=== PATIENT | female | born 1935 | race Caucasian/White ===

== ENCOUNTER 2021-02-19 15:44 | Inpatient (IN) | payer OTHER, SELFPAY ==
[2021-02-19 15:45] VITALS: BP 118/65; PULSE 80; RESP 16; TEMP 36.8; O2SAT 97; BMI 19.1
--- NOTE | 2021-02-19 16:02 | EDS_ITS ---
HPI History of Present Illness Chief Complaint: Lower Extremity Injury Informant: patient Narrative Narrative: Patient is a 85-year-old previously healthy [facility] female who presents to the emergency department for right hip pain. She was seen in urgent care earlier today. She was diagnosed with a hip fracture and sent to the emergency department. She had a fall on Thursday which caused the right hip pain. She has been getting around with a wheelchair as she cannot bear any weight. She states at rest she denies having any significant pain. Has been having some pain in her heel as well. She denies hitting her head or losing consciousness. No other injury noted. She is not any blood thinning medications. She denies any loss of sensation going down the legs. [facility] Medical History Hearing loss, left Hearing loss, right Wears hearing aid in both ears Home Medications multivitamin 1 tab PO DAILY 02/19/21 [History Last Taken Unknown] Allergy/AdvReac Type Severity Reaction Status Date / Time No Known Allergies Allergy Unverified 02/19/21 13:07 Family History Other Heart disease Surgical History History of History of hysterectomy Social History Smoking Status: Never smoker ROS ROS ED Constitutional Constitutional ED: Denies chills or fever(s) Eyes Eyes: Denies change in vision ENT ENT ED: Denies epistaxis or rhinorrhea Cardiovascular Cardiovascular: Denies chest pain or palpitations Respiratory/Chest Respiratory/Chest: Denies cough, dyspnea or dyspnea on exertion Gastrointestinal Gastrointestinal: Denies abdominal pain, diarrhea, nausea or vomiting Musculoskeletal Musculoskeletal: Reports joint pain; Denies back pain or neck pain Integumentary Denies rash Neurologic Neurologic: Denies dizziness, headache(s) or weakness EXAM Physical Exam Const Vital Signs: 02/19/21 15:45 Temperature 98.2 F Temperature Source Temporal Pulse Rate 80 Respiratory Rate 16 Blood Pressure 118/65 Blood Pressure Mean 82 Pulse Ox 97 Oxygen Delivery Method Room Air General Appearance ED: NAD HEENT Reports normocephalic, head/scalp atraumatic and moist mucous membranes Eyes PERRL and EOMs intact bilaterally Neck supple Resp normal respiratory effort and clear to auscultation bilaterally Auscultation: Negative for rales, rhonchi or wheezes Cardio regular rate, regular rhythm and no murmurs GI normal to inspection, nondistended, normoactive bowel sounds and non-tender Palpation: soft; Negative for guarding or rebound tenderness present Back/Spine no CVA tenderness Extremity normal to inspection Extremity Narrative: Difficulty moving right hip. 2+ DP pulse. Sensation intact. General Extremety ED: Negative for edema General Extremity: Negative for edema Neuro CN's II-XII intact bilaterally and no sensory deficits noted Sensorium / Orientation: alert Motor Exam: strength 5/5 throughout Psych mental status grossly normal Skin no rashes or lesions noted MDM MDM MDM Narrative Medical decision making narrative: Patient presents to the emergency department for right intertrochanteric femur fracture. She fell on Thursday. She had x-ray done as an outpatient. Patient is neurovascularly intact on exam. She is i no acute pain. I did discuss the case with the on-call orthopedic doctor as well as the hospitalist. Will bring into the hospital at this time for further evaluation and management. Discharge Plan Dx/Rx/DC Orders Clinical Impression: Hip pain Disposition Disposition: Acute Care Hospital [facility] Discharge Date/Time: 02/19/21 17:30
--- NOTE | 2021-02-19 17:04 | HP.PCM.HOS_ITS ---
HPI - General General Date of Admission: 02/19/21 HPI Narrative SONG FONG, is a 85 F who presents presents with right hip pain. Patient went to an urgent care today and was found to have a right intertrochanteric hip fracture. Patient was sent to the [facility] emergency room. Emergency room physician spoke with Dr. Cecy Ramirez who would see the patient in consultation. Patient stated that she fell while tripping over raised edged on a sidewalk landing on her right buttocks and also scraping her left thumb. Patient has been unable to bear weight since then. Patient states that she does not routinely fall and is otherwise been healthy. [facility] Medical History Hearing loss, left Hearing loss, right Wears hearing aid in both ears Home Medications multivitamin 1 tab PO DAILY 02/19/21 [History Last Taken Unknown] Allergy/AdvReac Type Severity Reaction Status Date / Time No Known Allergies Allergy Unverified 02/19/21 13:07 Family History Other Heart disease Surgical History History of History of hysterectomy Social History Smoking Status: Never smoker ROS ROS Narrative Right hip pain post fall. Right thumb abrasion post fall. Did not fall and hit her head when she fell. All review of systems were negative except as mentioned above in the history of present illness and the other review of systems. Vital Signs Vital Signs Vital Signs: 02/19/21 15:45 Temperature 36.8 C Temperature Source Temporal Pulse Rate 80 Respiratory Rate 16 Blood Pressure 118/65 Blood Pressure Mean 82 Pulse Ox 97 Oxygen Delivery Method Room Air Weight Weight: 44.452 kg Body Mass Index (BMI) 19.1 Physical Exam Const alert and no apparent distress General Appearance: cooperative HEENT normocephalic and moist oral mucous membranes Resp normal respiratory effort, no use of accessory muscles and clear to auscultation bilaterally Cardio regular rate, regular rhythm, S1 normal heart sound and S2 normal heart sound GI normal to inspection, nondistended, normoactive bowel sounds, non-tender and non-distended Extremity normal to inspection Extremity Narrative: Shortened right lower extremity compared to the left. Skin no rashes or lesions noted and skin turgor normal Neuro Neuro Narrative: DTRs 2 out of 4 in the lower extremities bilaterally. Sensorium / Orientation: awake and alert Psych affect normal Mood & Affect: depressed Results Medical Records Data Attestation: I reviewed the patient's medical records Right hip x-ray reviewed and showed right intertrochanteric hip fracture. Foot ankle x-ray reviewed showed no acute fracture. Assessment & Plan Assessment/Plan (1) Fracture, intertrochanteric, right femur: QUALIFIERS: Encounter type: initial encounter Fracture type: closed Fracture alignment: nondisplaced Qualified Code(s): S72.144A - Nondisplaced intertrochanteric fracture of right femur, initial encounter for closed fracture PLAN: 1. Right intertrochanteric hip fracture * Status post mechanical fall * NSQIP showed patient is overall low surgical risk though higher likelihood of discharged to halfway facility or rehab facility. * Patient medically cleared to proceed with surgery but will check preop EKG to verify no acute issues that would necessitate further management. * Dr. Morrow was notified through the emergency room and will see the patient in consultation. * Check a 25-hydroxy vitamin D level and replace if less than 50. 2. Suspected moderate protein malnutrition * Patient is very gaunt in appearance * No baseline weight to compare to * Check albumin 3. VTE prophylaxis * SCDs for now 4. Advanced care planning: Discussed with the patient. Patient wants CPR but does not want shocks. Told her that it none or nothing approach. She that she would receive shocks if it were deemed necessary. I did encourage her to talk it over further with her family but that we would leave her at full CODE STATUS including shocks, if indicated. I did radiate on several occasions that I have low concern for any cardiopulmonary arrest to occur while she is in the hospital during this hospitalization. Charges/Coding Visit Charges Inpatient E&M: 65202 Init Hosp L3
[2021-02-19 17:29] VITALS: BP 118/65; PULSE 80; RESP 16; TEMP 36.8; O2SAT 98
[2021-02-19 17:33] VITALS: BMI 17.1
[2021-02-19 17:34] VITALS: BP 124/69; PULSE 73; RESP 18; TEMP 36.8; O2SAT 97
--- NOTE | 2021-02-19 17:35 | EKG12_ITS ---
Test Reason : PRE OP Blood Pressure : / mmHG Vent. Rate : 083 BPM Atrial Rate : 076 BPM P-R Int : 140 ms QRS Dur : 086 ms QT Int : 414 ms P-R-T Axes : 000 029 064 degrees QTc Int : 486 ms Sinus rhythm vs Ectoppic atrial rhythm with occasional Premature ventricular complexes and Prematur e atrial complexes Non- specific T- wve abnormality Confirmed by BHUPINDER WEATHERS, KATIE ([id number]), publications editor PIPE VILLA ([id number]) on 02/22/2021 8:04:40 AM Referred By: CARMELA Confirmed By:KATIE ROE MD
[2021-02-19 18:21] LABS: Absolute Lymphocyte Count 0.89 X10^3/uL (0.83-4.51); Absolute Neutrophil Count 6.3 X10^3/uL (2.0-7.7); Basophil# 0.02 X10^3/uL; Basophil% 0.3 % (0-1); Eosinophil# 0.03 X10^3/uL; Eosinophils% 0.4 % (0-5); Hematocrit 31.9 % (37-47); Hemoglobin 10.9 g/dL (12.0-15.0); Lymphocyte # 0.89 X10^3/ul (0.83-4.51); Lymphocyte % 11.2 % (19-41); Mean Corp Hgb Conc 34.2 g/dL (32-36); Mean Corpuscular Hgb 30.1 pg (27.0-32.0); Mean Corpuscular Volume 88.1 fL (81-99); Mean Platelet Vol. 9.2 fl (6.2-12.0); Monocyte# 0.61 X10^3/uL; Monocyte% 7.7 % (0-10); NRBC Flagged by Analyzer 0 % (0-5); Neutrophil # 6.31 X10^3/uL (2.7-7.7); Neutrophil % 79.4 % (47-70); Platelet Count 215 K/mm3 (150-450); RBC Distribution Width CV 13.2 % (11.6-14.6); RBC Distribution Width SD 42.7 fl (35.1-43.9); Red Blood Count 3.62 M/mm3 (4.2-5.4); White Blood Count 7.9 K/mm3 (4.4-11.0)
[2021-02-19 18:57] LABS: ALB/GLOB Ratio 0.7 RATIO (0.9-2.4); AST(SGOT) 29 U/L (15-37); Alanine Aminotransfer ALT/SGPT 26 U/L (13-56); Albumin, Serum 3.1 g/dL (3.2-5.0); Alkaline Phosphatase 102 U/L (45-117); Anion Gap 8 (5-15); BUN 8 mg/dL (7-18); BUN/Creat Ratio 14.5 RATIO (10-20); Calcium,Total 9.5 mg/dL (8.5-10.1); Chloride 92 mmol/L (98-107); Creatinine, Serum 0.55 mg/dL (0.55-1.02); EST Glomerular Filtration Rate 112 mL/min (>60); Est Glom Filt Rate - Afr Amer 135 mL/min (>60); Estimated Creatinine Clearance 26.27 ml/min; Globulin 4.4 g/dL (2.2-4.2); Glucose 110 mg/dL (74-106); Potassium 3.6 mmol/L (3.5-5.1); Protein, Total 7.5 g/dL (6.4-8.2); Sodium Level 127 mmol/L (136-145)
[2021-02-19 18:59] LABS: Vitamin D,25 Hydroxy 11.4 ng/mL
[2021-02-19 23:34] VITALS: BP 118/67; PULSE 73; RESP 15; TEMP 36.8; O2SAT 100
[2021-02-20 05:34] VITALS: BP 134/84; PULSE 74; RESP 16; TEMP 37; O2SAT 98
--- NOTE | 2021-02-20 09:29 | NURSING ---
call placed to Dr. Mcintosh office, talked with her nurse whom confirmed he is aware of consult states will see patient this afternoon. requested she inform Dr. Morrow pt is ordered Regular diet at this time incase he intents to take patient to OR today.
--- NOTE | 2021-02-20 10:22 | NURSING ---
Surgery Charge nurse updated via text: I called the office. Dr. Morrow is aware of consult will see pt this afternoon, and was informed pt is currently ordered Regular diet. No orders given.
--- NOTE | 2021-02-20 10:53 | PCM.PN.HOSP ---
Documented by User: Aileen Jamison NP, [facility] 02/20/21 11:05 Subjective Subjective Patient seen and examined. Denies significant pain except with movement. Awaiting Ortho eval for surgery plans. Denies other symptoms or complaints. Family at bedside. Objective Data Objective Data Vital Signs: Vital Signs Temp Pulse Resp BP Pulse Ox 98.6 F 74 16 134/84 H 98 02/20/21 05:34 02/20/21 05:34 02/20/21 05:34 02/20/21 05:34 02/20/21 05:34 Oxygen Delivery Method Room Air Weight: 87 lb 9.6 oz Body Mass Index (BMI) 17.1 Intake & Output: Intake and Output for Last 24 Hours 02/18/21 02/19/21 02/20/21 23:59 23:59 23:59 Intake Total 800 / 800 Output Total 550 / 550 400 / 400 Balance 250 / 250 -400 / -400 Lab / Micro Data Result Diagrams: 02/19/21 18:02 02/19/21 18:02 Labs: Laboratory Results - last 24 hr 02/19/21 02/19/21 02/19/21 18:02 18:02 18:02 WBC 7.9 RBC 3.62 L Hgb 10.9 L Hct 31.9 L MCV 88.1 MCH 30.1 MCHC 34.2 RDW Std Deviation 42.7 RDW Coeff of [place] 13.2 Plt Count 215 MPV 9.2 Immature Gran % (Auto) 1.000 H Neut % (Auto) 79.4 H Lymph % (Auto) 11.2 L [place] % (Auto) 7.7 Eos % (Auto) 0.4 Baso % (Auto) 0.3 Absolute Neuts (auto) 6.3 Absolute Lymphs (auto) 0.89 Nucleated RBC % 0 Sodium 127 L Potassium 3.6 Chloride 92 L Carbon Dioxide 27.0 Anion Gap 8 BUN 8 Creatinine 0.55 Estim Creat Clear Calc 26.27 Est GFR (MDRD) Af Amer 135 Est GFR (MDRD) Non-Af 112 BUN/Creatinine Ratio 14.5 Glucose 110 H Calcium 9.5 Total Bilirubin 0.70 AST 29 ALT 26 Alkaline Phosphatase 102 Total Protein 7.5 Albumin 3.1 L Globulin 4.4 H Albumin/Globulin Ratio 0.7 L Vitamin D 25-Hydroxy 11.4 Blood Type Antibody Screen 02/20/21 06:48 WBC RBC Hgb Hct MCV MCH MCHC RDW Std Deviation RDW Coeff of [place] Plt Count MPV Immature Gran % (Auto) Neut % (Auto) Lymph % (Auto) [place] % (Auto) Eos % (Auto) Baso % (Auto) Absolute Neuts (auto) Absolute Lymphs (auto) Nucleated RBC % Sodium Potassium Chloride Carbon Dioxide Anion Gap BUN Creatinine Estim Creat Clear Calc Est GFR (MDRD) Af Amer Est GFR (MDRD) Non-Af BUN/Creatinine Ratio Glucose Calcium Total Bilirubin AST ALT Alkaline Phosphatase Total Protein Albumin Globulin Albumin/Globulin Ratio Vitamin D 25-Hydroxy Blood Type A POSITIVE Antibody Screen NEGATIVE Physical Exam Const alert, oriented x3 and no apparent distress Orientation / Consciousness: awake, oriented to person, oriented to place and oriented to time Nutritional Appearance: cachectic HEENT normocephalic and moist oral mucous membranes Eyes PERRL, EOMs intact bilaterally and conjunctivae normal Neck no lymphadenopathy Resp normal respiratory effort and clear to auscultation bilaterally Cardio regular rate, regular rhythm and no murmurs Peripheral Pulses: pulses 2+ throughout GI normal to inspection, nondistended, normoactive bowel sounds, non-tender and non-distended Extremity normal to inspection Skin no rashes or lesions noted Lesions: no lesions Rashes: no rashes Trauma: no lacerations or abrasions Neuro CN's II-XII intact bilaterally, no focal motor deficits, no sensory deficits noted and deep tendon reflexes 2+ bilaterally Psych mental status grossly normal and affect normal Assessment & Plan Assessment/Plan (1) Fracture, intertrochanteric, right femur: QUALIFIERS: Encounter type: initial encounter Fracture alignment: nondisplaced Fracture type: closed Qualified Code(s): S72.144A - Nondisplaced intertrochanteric fracture of right femur, initial encounter for closed fracture PLAN: 1. Acute traumatic right intertrochanteric hip fracture secondary to mechanical fall prior to admission-Ortho consulted. Cleared medically to proceed with surgery. PT/OT following surgery, will likely need SNF. 2. Severe protein calorie malnutrition-as evidenced by cachectic appearance, BMI 17.1 with evidence of muscle and fat loss. Dietitian consult. 3. Hyponatremia-no prior labs for comparison, unclear acute or chronic. IV fluids, trend BMP. Suspect secondary to poor intake however if not improved will need further urine studies/evaluation. 4. Vitamin D deficiency-vitamin D 11.4. Begin vitamin D 50,000 units once weekly for 6 to 8 weeks followed by 800 units thereafter. Will need further outpatient lab/follow-up. 5. Mild normocytic anemia- trend CBC following OR. DVT prophylaxis-SCDs, pharmacologic prophylaxis per Ortho following OR This patient was seen by TATYANA Hickey under the supervision of Dr. Leo. Documented by User: Dr. Tra Leo MD 02/20/21 13:42 Objective Data Lab / Micro Data Result Diagrams: 02/19/21 18:02 02/19/21 18:02 Charges/Coding Addendum Addendum: Dr. Leo I personally examined the patient and reviewed the chart. I agree with the above. 85-year-old female presented from home after mechanical fall. She was found to have a nondisplaced right-sided intertrochanteric fracture. She is currently nonweightbearing pending evaluation by orthopedic surgery for possible operative intervention. On admission she was found to be low risk for surgery, will continue to monitor her electrolytes as well as her creatinine. She is tolerating a regular diet. Continue with SCDs. Visit Charges Inpatient E&M: 78649 Subs Hosp L2
[2021-02-20] MEDS: 0.9% Normal Saline 1,000 ML 100 ML IV (11:28)
[2021-02-20 11:34] VITALS: BP 123/66; PULSE 53; RESP 16; TEMP 37.2; O2SAT 95
--- NOTE | 2021-02-20 13:38 | NURSING ---
RN CM Assessment Introduced role of RN CM to patient and patient lacy Hein at bedside. Patient is alert, oriented and able to participate in RN CM Assessment. Care providers, pharmacy, and demographics verified. Admit Dx: Hip Fx Re-Admit: No Barriers/Issues: Lacy Mendez and her spouse live in adjoining home with patient. Patient would like to return home upon DC unless felt she really requires SNF. Has a WC that they are currently renting. Has a walker with no wheels and can rent other DME if needed. List for DME rental for Pj provided amongst list for private pay HH/Outpatiet PT/Home Care. Lacy Mendez is currently on vacation out of town until return this Thursday. RNCM to follow after patient has surgery and evaluated by PT/OT. Lacy Carlson to then discuss DC plan with Dtania Mendez. PCP: None, sees whatever provider at [place]. PCP list provided. Specialists: None Preferred Pharmacy: [facility] [place] Insurance: None Rx Benefit: None LNOK: Lacy Carlson LW/HPOA: States has HPOA- son Jacob Ruiz Living Arrangement/ADLs: Lives next to Lacy Mendez and her in adjoing home. Independent with ambulation and ADLs prior to this injury. Transportation:Hired drivers DME: None. Currently renting WC. HHC/SNF: None Goal: Would like to return [place] with assistance of family and possible hired HH PT or Outpatient PT if recommended. RNCM to f/u. DC PLAN: Home with private pay HH PT or Outpatient PT and family assistance. List already provided. MADELINE Merrill
[2021-02-20 14:06] VITALS: BP 117/75; PULSE 77; RESP 18; TEMP 36.9; O2SAT 97
[2021-02-20] MEDS: Ergocalciferol 1.25 MG (50, 000 UNIT) Capsule PO (14:11)
[2021-02-20] MEDS: Multivitamins,Therapeutic Tablet 1 TABLET PO (14:11)
--- NOTE | 2021-02-20 14:40 | PCM.DC ---
Discharge Instructions Diet Discharge Diet: No restrictions Activity Discharge Activity: May Not Drive May shower in (days): 2 Ice area for (Minutes): 20 (every hour while awake.) Weight Bearing Status: Weight bearing as tolerated Keep extremity elevated above heart level: Operative Extremity Dressing / Incision Call your doctor if your incision/area has: Continuous Slow Oozing, Sudden Increased Bleeding, Increased Pain/ Swelling, Increased Redness and Foul Smelling Discharge Call your doctor if you observe: Fever of 101 or Higher, Coldness, Increased Pain, Numbness or Tingling, Change in Color and Calf discomfort Follow Up Care Please Follow Up With: Ibrahima Lauren PA-C When: Please call [phone] to schedule a follow up appointment. Test Results: Test results from this visit will be discussed in further detail at your follow-up appointment, if applicable. Discharge Plan Admission Admit Date/Time: 02/19/21 17:03 Attending Provider: Tra Leo Primary Care Provider: Care Physician,No Primary Consulting Providers: Mario Alberto Morrow Discharge Orders/Prescriptions Prescriptions: No Action multivitamin Tablet 1 tab PO DAILY RF: 0 Referrals / Follow Up: Care Physician,No Primary [Primary Care Provider] -
--- NOTE | 2021-02-20 14:45 | PCM.DC ---
Discharge Instructions Diet Discharge Diet: No restrictions Activity Discharge Activity: May Not Drive May shower in (days): 3 Ice area for (Minutes): 30 (every hour while awake.) Weight Bearing Status: Weight bearing as tolerated Keep extremity elevated above heart level: Operative Extremity Dressing / Incision Call your doctor if your incision/area has: Continuous Slow Oozing, Sudden Increased Bleeding, Increased Pain/ Swelling, Increased Redness and Foul Smelling Discharge Call your doctor if you observe: Fever of 101 or Higher, Coldness, Increased Pain, Numbness or Tingling, Change in Color and Calf discomfort Change Dressing in: leave in place till F/U Remove Dressing in: leave in place till F/U Follow Up Care Please Follow Up With: Ibrahima Lauren PA-C When: Please call [phone] to schedule a follow up appointment. Test Results: Test results from this visit will be discussed in further detail at your follow-up appointment, if applicable. Discharge Plan Admission Admit Date/Time: 02/19/21 17:03 Attending Provider: Tra Leo Primary Care Provider: Care Physician,No Primary Consulting Providers: Mario Alberto Morrow Discharge Orders/Prescriptions Prescriptions: No Action multivitamin Tablet 1 tab PO DAILY RF: 0 Referrals / Follow Up: Care Physician,No Primary [Primary Care Provider] -
--- NOTE | 2021-02-20 14:49 | DCINST_ITS ---
Discharge Instructions Follow Up Care Test Results: Test results from this visit will be discussed in further detail at your follow-up appointment, if applicable. Discharge Plan Admission Admit Date/Time: 02/19/21 17:03 Primary Reason for Your Visit: Intertrochanteric right femure fracture Attending Provider: Tra Leo Primary Care Provider: Agnieszka Physician,No Primary Consulting Providers: Mario Alberto Morrow Instructions Additional Instructions / Restrictions: Aspirin 325 mg 1 p.o. every 12 hours x14 days for postop DVT prophylaxis Discharge Orders/Prescriptions Prescriptions: New oxycodone 5 mg capsule 5 mg PO Q8H PRN (Reason: pain) 7 Days Qty: 21 RF: 0 Continued multivitamin Tablet 1 tab PO DAILY RF: 0 Referrals / Follow Up: Care Physician,No Primary [Primary Care Provider] - Ibrahima Lauren PAReginaldC [PHYSICIAN [employer]SULTANT] - Disposition Disposition (needs filled in before D/C Order can be placed): Home Health Service
--- NOTE | 2021-02-20 15:03 | CONS.ORTHO ---
HPI Consult Data Date of Consult: 02/20/21 HPI Narrative Reason for Consultation: Right hip fracture HPI Narrative: SONG FONG, is a 85 F who presents with right hip pain as result of a right intertrochanteric hip fracture. Patient was at home when she lost her balance and fell landing onto her right hip. Patient states she had immediate pain and was unable to ambulate after her fall. Patient reports no previous injury to this hip in the past. Patient states that she skinned her elbow but denies any other associated injury with this fall. Patient denies striking her head, or any loss of consciousness. Patient denies any neck or back pain. Patient denies any numbness or tingling of the right leg. Patient states the pain is quite severe isolated within the right hip. Patient at this time denies any other associated injury or complaints. Patient does report that she does have a family history, a nephew who experienced malignant hyperthermia. The patient is unable to confirm if any of her brothers or sisters or other family members have had issues with anesthesia. Patient states she has never had general anesthesia [facility] Medical History (Updated 02/19/21 @ 21:[address] Sunil Alas DO) Hearing loss, left Hearing loss, right Wears hearing aid in both ears Home Medications multivitamin 1 tab PO DAILY 02/19/21 [History Last Taken Unknown] Allergy/AdvReac Type Severity Reaction Status Date / Time No Known Allergies Allergy Unverified 02/19/21 13:07 Family History Other Heart disease Surgical History History of History of hysterectomy Social History Smoking Status: Never smoker ROS Constitutional Constitutional: Reports systems reviewed and no addt'l complaints, except as documented Eyes Eyes: Reports systems reviewed and no addt'l complaints, except as documented ENT HEENT: Reports systems reviewed and no addt'l complaints, except as documented Cardiovascular Cardiovascular: Reports systems reviewed and no addt'l complaints, except as documented Musculoskeletal Musculoskeletal: Reports as per HPI Vital Signs Vital Signs Vital Signs: 02/19/21 15:45 02/19/21 17:29 02/19/21 17:34 Temperature 98.2 F 98.2 F 98.2 F Temperature Source Temporal Temporal Oral Pulse Rate 80 80 73 Pulse Strength Respiratory Rate 16 16 18 Blood Pressure 118/65 118/65 124/69 H Blood Pressure Mean 82 82 87 Blood Pressure Source Monitor Blood Pressure Position Semi-Fowlers Blood Pressure Location Right Arm Pulse Ox 97 98 97 Oxygen Delivery Method Room Air Room Air Room Air 02/19/21 20:25 02/19/21 23:34 02/20/21 05:34 Temperature 98.2 F 98.6 F Temperature Source Oral Oral Pulse Rate 73 74 Pulse Strength Normal (2+) Respiratory Rate 15 16 Blood Pressure 118/67 134/84 H Blood Pressure Mean 84 100 Blood Pressure Source Monitor Monitor Blood Pressure Position Semi-Fowlers Semi-Fowlers Blood Pressure Location Right Arm Right Arm Pulse Ox 100 98 Oxygen Delivery Method Room Air Room Air 02/20/21 11:34 02/20/21 14:06 Temperature 99.0 F 98.4 F Temperature Source Temporal Oral Pulse Rate 53 L 77 Pulse Strength Respiratory Rate 16 18 Blood Pressure 123/66 H 117/75 Blood Pressure Mean 85 89 Blood Pressure Source Monitor Monitor Blood Pressure Position Semi-Fowlers Semi-Fowlers Blood Pressure Location Right Arm Right Arm Pulse Ox 95 97 Oxygen Delivery Method Room Air Room Air Weight Weight: 39.735 kg Body Mass Index (BMI) 17.1 Physical Exam Narrative Upon exam I found the patient lying comfortably in bed, her daughter at her bedside. Patient was alert oriented. Patient was no respiratory distress. Patient is a very thin frail appearing 85-year-old female. Patient no signs of trauma to the head face neck. Cranial nerves II through XII grossly intact. Patient had no pain to palpation cervical thoracic lumbar spine. Patient full range of motion of the bilateral shoulders elbows wrists and hands with good muscle tone and strength. Patient did have a small superficial abrasion over the right olecranon region. She however had full flexion extension of the right elbow without pain or limitations. Patient's abdomen was soft nontender there was no ecchymosis. Patient no pain to palpation to the left hip knee ankle and foot. She has good range of motion of left hip knee and ankle. Exam of the right hip, patient was exquisitely tender to palpation over the greater trochanteric region. Patient had no obvious soft tissue trauma or indication of an open fracture. Patient does have diffuse ecchymosis. Patient's had slight external rotation of shortening of the right leg. I did not attempt any flexion extension of the knee. She does have good plantar flexion dorsiflexion of the foot without paresthesias she has a strong posterior tibial and dorsalis pedis pulse. Imaging studies show patient does have a displaced intertrochanteric fracture. Const oriented x3 HEENT normocephalic and head/scalp atraumatic Eyes PERRL Neuro CN's II-XII intact bilaterally Psych mental status grossly normal Lab / Micro Data Result Diagrams: 02/19/21 18:02 02/19/21 18:02 Labs: Laboratory Results - last 24 hr 02/19/21 02/19/21 02/19/21 18:02 18:02 18:02 WBC 7.9 RBC 3.62 L Hgb 10.9 L Hct 31.9 L MCV 88.1 MCH 30.1 MCHC 34.2 RDW Std Deviation 42.7 RDW Coeff of [place] 13.2 Plt Count 215 MPV 9.2 Immature Gran % (Auto) 1.000 H Neut % (Auto) 79.4 H Lymph % (Auto) 11.2 L [place] % (Auto) 7.7 Eos % (Auto) 0.4 Baso % (Auto) 0.3 Absolute Neuts (auto) 6.3 Absolute Lymphs (auto) 0.89 Nucleated RBC % 0 Sodium 127 L Potassium 3.6 Chloride 92 L Carbon Dioxide 27.0 Anion Gap 8 BUN 8 Creatinine 0.55 Estim Creat Clear Calc 26.27 Est GFR (MDRD) Af Amer 135 Est GFR (MDRD) Non-Af 112 BUN/Creatinine Ratio 14.5 Glucose 110 H Calcium 9.5 Total Bilirubin 0.70 AST 29 ALT 26 Alkaline Phosphatase 102 Total Protein 7.5 Albumin 3.1 L Globulin 4.4 H Albumin/Globulin Ratio 0.7 L Vitamin D 25-Hydroxy 11.4 Blood Type Antibody Screen 02/20/21 06:48 WBC RBC Hgb Hct MCV MCH MCHC RDW Std Deviation RDW Coeff of [place] Plt Count MPV Immature Gran % (Auto) Neut % (Auto) Lymph % (Auto) [place] % (Auto) Eos % (Auto) Baso % (Auto) Absolute Neuts (auto) Absolute Lymphs (auto) Nucleated RBC % Sodium Potassium Chloride Carbon Dioxide Anion Gap BUN Creatinine Estim Creat Clear Calc Est GFR (MDRD) Af Amer Est GFR (MDRD) Non-Af BUN/Creatinine Ratio Glucose Calcium Total Bilirubin AST ALT Alkaline Phosphatase Total Protein Albumin Globulin Albumin/Globulin Ratio Vitamin D 25-Hydroxy Blood Type A POSITIVE Antibody Screen NEGATIVE Assessment & Plan Assessment/Plan (1) Fracture, intertrochanteric, right femur: QUALIFIERS: Encounter type: initial encounter Fracture type: closed Fracture alignment: nondisplaced Qualified Code(s): S72.144A - Nondisplaced intertrochanteric fracture of right femur, initial encounter for closed fracture PLAN: 1. Continue all pain medications as prescribed 2. N.p.o. after midnight 3. Patient will undergo ORIF of a right hip intertrochanteric fracture with a short gamma nail. 4. Continue use of SCDs bilateral lower extremities 5. Ice to right hip 6. 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 Surgery will be performed by Dr. Morrow
[2021-02-20 20:00] VITALS: BP 116/54; PULSE 66; RESP 16; TEMP 37.2; O2SAT 95
[2021-02-21] VITALS (11 sets, daily range): BP systolic 109–174; BP diastolic 54–86; PULSE 62–80; RESP 12–18; TEMP 36.1–36.8; O2SAT 93–100; BMI 17.1
[2021-02-21 06:17] LABS: Absolute Lymphocyte Count 1.04 X10^3/uL (0.83-4.51); Absolute Neutrophil Count 3.3 X10^3/uL (2.0-7.7); Basophil# 0.03 X10^3/uL; Basophil% 0.6 % (0-1); Eosinophils% 3.9 % (0-5); Hematocrit 27.8 % (37-47); Hemoglobin 9.4 g/dL (12.0-15.0); Lymphocyte # 1.04 X10^3/ul (0.83-4.51); Lymphocyte % 20.4 % (19-41); Mean Corp Hgb Conc 33.8 g/dL (32-36); Mean Corpuscular Hgb 30.1 pg (27.0-32.0); Mean Corpuscular Volume 89.1 fL (81-99); Monocyte# 0.52 X10^3/uL; Monocyte% 10.2 % (0-10); NRBC Flagged by Analyzer 0 % (0-5); Neutrophil # 3.28 X10^3/uL (2.7-7.7); Neutrophil % 64.1 % (47-70); Platelet Count 229 K/mm3 (150-450); RBC Distribution Width CV 13.6 % (11.6-14.6); RBC Distribution Width SD 44.1 fl (35.1-43.9); Red Blood Count 3.12 M/mm3 (4.2-5.4); White Blood Count 5.1 K/mm3 (4.4-11.0)
[2021-02-21 06:39] LABS: Anion Gap 7 (5-15); BUN 10 mg/dL (7-18); BUN/Creat Ratio 23.3 RATIO (10-20); Calcium,Total 8.8 mg/dL (8.5-10.1); Chloride 98 mmol/L (98-107); Creatinine, Serum 0.43 mg/dL (0.55-1.02); EST Glomerular Filtration Rate 149 mL/min (>60); Est Glom Filt Rate - Afr Amer 180 mL/min (>60); Estimated Creatinine Clearance 26.27 ml/min; Glucose 97 mg/dL (74-106); Potassium 3.5 mmol/L (3.5-5.1); Sodium Level 132 mmol/L (136-145)
--- NOTE | 2021-02-21 07:04 | PCM.PN.ORT ---
Subjective Subjective Patient lying in bed. Patient states pain is well-managed. Patient denies chest pain, shortness of breath, calf pain, nausea vomiting. Patient's daughter is at her bedside. Patient has no other complaints at this time. Objective Data Objective Data Vital Signs: Vital Signs Temp Pulse Resp BP Pulse Ox 98.2 F 72 16 126/83 H 96 02/21/21 02:00 02/21/21 02:00 02/21/21 02:00 02/21/21 02:00 02/21/21 02:00 Oxygen Delivery Method Room Air Weight: 39.735 kg Body Mass Index (BMI) 17.1 Intake & Output: Intake and Output for Last 24 Hours 02/19/21 02/20/21 02/21/21 23:59 23:59 23:59 Intake Total 800 / 800 2000 / 2300 700 / 700 Output Total 550 / 550 2000 / 2000 1000 / 1000 Balance 250 / 250 0 / 300 -300 / -300 Lab / Micro Data Result Diagrams: 02/21/21 05:50 02/21/21 05:50 Labs: Laboratory Results - last 24 hr 02/20/21 02/21/21 02/21/21 06:48 05:50 05:50 WBC 5.1 RBC 3.12 L Hgb 9.4 L Hct 27.8 L MCV 89.1 MCH 30.1 MCHC 33.8 RDW Std Deviation 44.1 H RDW Coeff of [place] 13.6 Plt Count 229 MPV 9.0 Immature Gran % (Auto) 0.800 Neut % (Auto) 64.1 Lymph % (Auto) 20.4 [place] % (Auto) 10.2 H Eos % (Auto) 3.9 Baso % (Auto) 0.6 Absolute Neuts (auto) 3.3 Absolute Lymphs (auto) 1.04 Nucleated RBC % 0 Sodium 132 L Potassium 3.5 Chloride 98 Carbon Dioxide 27.0 Anion Gap 7 BUN 10 Creatinine 0.43 L Estim Creat Clear Calc 26.27 Est GFR (MDRD) Af Amer 180 Est GFR (MDRD) Non-Af 149 BUN/Creatinine Ratio 23.3 H Glucose 97 Calcium 8.8 Blood Type A POSITIVE Antibody Screen NEGATIVE Physical Exam Narrative Patient is alert oriented. Patient is no respiratory distress, speaking in full sentences. Patient's vitals and labs were all reviewed and noted in the medical record within normal limits. Patient is afebrile. Patient is exquisitely tender to palpation directly over the greater trochanteric region of the right hip. Patient has good plantar flexion dorsiflexion of the foot. She has no calf tenderness. She has strong posterior tibial dorsalis pedis pulses on the affected right leg. No tissue breakdown diffuse ecchymosis over the fracture. Assessment & Plan Assessment/Plan (1) Fracture, intertrochanteric, right femur: QUALIFIERS: Encounter type: initial encounter Fracture type: closed Fracture alignment: nondisplaced Qualified Code(s): S72.144A - Nondisplaced intertrochanteric fracture of right femur, initial encounter for closed fracture PLAN: 1. Continue all pain medications as prescribed 2. Continue ice to right hip 3. Continue n.p.o. for anticipated surgery at [address] Morrow 4. Begin perioperative antibiotic as prescribed
[2021-02-21] MEDS: 0.9% Normal Saline 1,000 ML 100 ML IV (09:32)
[2021-02-21] MEDS: 0.9% Saline Lock 10 ML Syringe IV (09:33)
--- NOTE | 2021-02-21 11:47 | PCM.PN.HOSP ---
Documented by User: Fantasma LAWTON 02/21/21 12:00 Subjective Subjective Patient is a male lying in bed, alert and oriented x3. Patient reports significant pain about the right hip in the area of her fracture. Denies any progression in symptoms from yesterday. Denies chest pain, shortness of breath, palpitations, hemoptysis, fever, chills, N/V/D. Objective Data Objective Data Vital Signs: Vital Signs Temp Pulse Resp BP Pulse Ox 98.2 F 70 12 109/67 96 02/21/21 07:07 02/21/21 08:01 02/21/21 07:07 02/21/21 07:07 02/21/21 07:07 Oxygen Delivery Method Room Air Weight: 87 lb 9.611 oz Body Mass Index (BMI) 17.1 Intake & Output: Intake and Output for Last 24 Hours 02/19/21 02/20/21 02/21/21 23:59 23:59 23:59 Intake Total 800 / 800 2000 / 2300 700 / 700 Output Total 550 / 550 2000 / 2000 1000 / 1000 Balance 250 / 250 0 / 300 -300 / -300 Lab / Micro Data Result Diagrams: 02/21/21 05:50 02/21/21 05:50 Labs: Laboratory Results - last 24 hr 02/21/21 02/21/21 05:50 05:50 WBC 5.1 RBC 3.12 L Hgb 9.4 L Hct 27.8 L MCV 89.1 MCH 30.1 MCHC 33.8 RDW Std Deviation 44.1 H RDW Coeff of [place] 13.6 Plt Count 229 MPV 9.0 Immature Gran % (Auto) 0.800 Neut % (Auto) 64.1 Lymph % (Auto) 20.4 [place] % (Auto) 10.2 H Eos % (Auto) 3.9 Baso % (Auto) 0.6 Absolute Neuts (auto) 3.3 Absolute Lymphs (auto) 1.04 Nucleated RBC % 0 Sodium 132 L Potassium 3.5 Chloride 98 Carbon Dioxide 27.0 Anion Gap 7 BUN 10 Creatinine 0.43 L Estim Creat Clear Calc 26.27 Est GFR (MDRD) Af Amer 180 Est GFR (MDRD) Non-Af 149 BUN/Creatinine Ratio 23.3 H Glucose 97 Calcium 8.8 Micro: Microbiology 02/21/21 08:11 Mucosa - Nose SARS-CoV-2 Antigen (Rapid) - Final Physical Exam Narrative See subjective. Const alert, oriented x3 and no apparent distress HEENT head/scalp atraumatic, moist oral mucous membranes and oropharynx normal Head and Scalp: normocephalic Eyes PERRL, EOMs intact bilaterally and conjunctivae normal Neck no lymphadenopathy, supple and no JVD Resp normal respiratory effort, no retractions, no use of accessory muscles and clear to auscultation bilaterally Cardio regular rate, regular rhythm, no murmurs and no JVD GI normal to inspection, nondistended, normoactive bowel sounds, soft to palpation, non-tender and non-distended Extremity Extremity Narrative: Patient reports significant pain about the right hip. Skin no rashes or lesions noted, no wounds, skin turgor normal and no jaundice Neuro CN's II-XII intact bilaterally Psych affect normal Assessment & Plan Assessment/Plan (1) Fracture, intertrochanteric, right femur: QUALIFIERS: Encounter type: initial encounter Fracture alignment: nondisplaced Fracture type: closed Qualified Code(s): S72.144A - Nondisplaced intertrochanteric fracture of right femur, initial encounter for closed fracture (2) Hip pain: PLAN: See subjective for patient presentation. 1) Intertrochanteric right femur fracture Management per orthopedics department, ORIF scheduled for [address] Morrow on 02/21. Patient would prefer to be discharged home as she feels she has plenty of family/social support. 2) Hyponatremia Currently 132, up from admission. No prior labs for comparison to determine if acute or chronic. plan; IVF ordered, monitor BMP. 3) vitamin D deficiency Vitamin D 50,000 units 1 time per week initiated. Will need to be discharged on 800 units for 6 to 8 weeks. 4) mild normocytic anemia Hemoglobin 9.4, stable. Plan; monitor CBC. 5) protein calorie malnutrition BMI 17.1 with evidence of muscle and fat loss. Patient is cachectic in appearance. Plan; diet consult ordered. DVT prophylaxis - SCDs Patient seen by Fantasma Pascual PA-C, under the supervision of Dr. Leo. Documented by User: Dr. Tra Leo MD 02/21/21 12:28 Objective Data Lab / Micro Data Result Diagrams: 02/21/21 05:50 02/21/21 05:50 Charges/Coding Addendum Addendum: Dr. Leo I personally examined the patient and reviewed the chart. I agree with the above. 85-year-old female presented from home after mechanical fall. She was found to have a nondisplaced right-sided intertrochanteric fracture. She is currently nonweightbearing pending evaluation by orthopedic surgery for possible operative intervention. On admission she was found to be low risk for surgery, will continue to monitor her electrolytes as well as her creatinine. She is tolerating a regular diet. Continue with SCDs. 02/21/2021: Doing well, still with pain in her right hip. She is scheduled for surgery today at around 1 PM. She would like to go home if possible after surgery once cleared by therapy but I did discuss with her the possibility of a [place] [facility] facility depending on what physical therapy and Occupational Therapy stay. Visit Charges Inpatient E&M: 10282 Subs Hosp L2
--- NOTE | 2021-02-21 13:48 | RAD_ITS ---
EXAM: XR RIGHT HIP WITH PELVIS WHEN PERFORMED, 2 OR 3 VIEWS : 1935 CLINICAL INDICATION: FX TECHNIQUE: Two or three views of the right hip with pelvis when performed. This report was created using [employer] report [employer] technology. COMPARISON: None. FINDINGS: 7 images from intraoperative fluoroscopy for ORIF of a proximal right femoral fracture. 6 images provided. Dose: 7.64 mGy Fluoroscopy time: 85.7 seconds. RAD/HIP, UNI W/ Pelvis 2-3 Views IMPRESSION: Intraoperative fluoroscopy as detailed above. at 2231 Reported and signed by: Jony Sheets MD Electronically Signed: Jony Sheets MD at 22:31 EDT Tel , Service support ,
--- NOTE | 2021-02-21 14:50 | OP.PCM_ITS ---
Report of Operation Date of Procedure: 02/21/21 Pre-Operative Diagnosis: Comminuted intertrochanteric fracture right hip Post-Operative Diagnosis: same Surgery/Procedure Performed:: ORIF right hip Surgeon: Mario Alberto Morrow field artillery fire control man: Vianey Lam Anesthesiologist: Vance Hernandez Specimen's removed: none Estimated Blood Loss (mL): 50 cc Admit VTE Documentation VTE Present on Admission: No VTE Mechan Device Prophylaxis: SCD's VTE Pharm Prophylaxis ordered?: Yes
[2021-02-21] MEDS: 0.9% Normal Saline 1,000 ML 75 ML IV (15:33)
[2021-02-21 16:06] LABS: Hematocrit 28.6 % (37-47); Hemoglobin 9.2 g/dL (12.0-15.0); Mean Corp Hgb Conc 32.2 g/dL (32-36); Mean Corpuscular Volume 93.2 fL (81-99); Platelet Count 218 K/mm3 (150-450); RBC Distribution Width CV 13.8 % (11.6-14.6); RBC Distribution Width SD 46.6 fl (35.1-43.9); Red Blood Count 3.07 M/mm3 (4.2-5.4); White Blood Count 6.4 K/mm3 (4.4-11.0)
[2021-02-21 16:24] LABS: Anion Gap 6 (5-15); BUN 10 mg/dL (7-18); BUN/Creat Ratio 19.1 RATIO (10-20); Calcium,Total 8.8 mg/dL (8.5-10.1); Chloride 102 mmol/L (98-107); Creatinine, Serum 0.52 mg/dL (0.55-1.02); EST Glomerular Filtration Rate 119 mL/min (>60); Est Glom Filt Rate - Afr Amer 143 mL/min (>60); Estimated Creatinine Clearance 26.27 ml/min; Glucose 102 mg/dL (74-106); Potassium 3.8 mmol/L (3.5-5.1); Sodium Level 135 mmol/L (136-145)
[2021-02-21] MEDS: Acetaminophen 325 MG Tablet 650 MG PO (17:25)
[2021-02-21] MEDS: Cefazolin 1 GM/50 ML BAG IV (21:37)
[2021-02-22 00:46] VITALS: BP 115/67; PULSE 66; RESP 16; TEMP 36.6; O2SAT 97
[2021-02-22 05:09] LABS: Absolute Lymphocyte Count 0.72 X10^3/uL (0.83-4.51); Absolute Neutrophil Count 4.9 X10^3/uL (2.0-7.7); Basophil# 0.01 X10^3/uL; Basophil% 0.2 % (0-1); Eosinophil# 0.01 X10^3/uL; Eosinophils% 0.2 % (0-5); Hemoglobin 8.5 g/dL (12.0-15.0); Lymphocyte # 0.72 X10^3/ul (0.83-4.51); Lymphocyte % 11.6 % (19-41); Mean Corp Hgb Conc 32.7 g/dL (32-36); Mean Corpuscular Hgb 29.8 pg (27.0-32.0); Mean Corpuscular Volume 91.2 fL (81-99); Mean Platelet Vol. 8.7 fl (6.2-12.0); Monocyte# 0.53 X10^3/uL; Monocyte% 8.6 % (0-10); NRBC Flagged by Analyzer 0 % (0-5); Neutrophil # 4.89 X10^3/uL (2.7-7.7); Neutrophil % 78.9 % (47-70); Platelet Count 219 K/mm3 (150-450); RBC Distribution Width CV 13.4 % (11.6-14.6); RBC Distribution Width SD 44.8 fl (35.1-43.9); Red Blood Count 2.85 M/mm3 (4.2-5.4); White Blood Count 6.2 K/mm3 (4.4-11.0)
[2021-02-22 05:20] VITALS: BP 116/66; PULSE 70; RESP 16; TEMP 36.6; O2SAT 96
[2021-02-22] MEDS: Cefazolin 1 GM/50 ML BAG IV (05:23)
[2021-02-22 05:30] LABS: Anion Gap 7 (5-15); BUN 9 mg/dL (7-18); BUN/Creat Ratio 23.8 RATIO (10-20); Calcium,Total 8.6 mg/dL (8.5-10.1); Chloride 103 mmol/L (98-107); Creatinine, Serum 0.38 mg/dL (0.55-1.02); EST Glomerular Filtration Rate 172 mL/min (>60); Est Glom Filt Rate - Afr Amer 209 mL/min (>60); Estimated Creatinine Clearance 26.27 ml/min; Glucose 94 mg/dL (74-106); Potassium 3.5 mmol/L (3.5-5.1); Sodium Level 135 mmol/L (136-145)
[2021-02-22] MEDS: Rivaroxaban 10 MG Tablet PO (05:43)
[2021-02-22] MEDS: HYDROcodone Bitartrate/Apap 5/325 Tablet PO (05:46)
[2021-02-22 08:04] VITALS: BP 107/66; PULSE 58; RESP 16; TEMP 36.4; O2SAT 96
[2021-02-22] MEDS: Multivitamins,Therapeutic Tablet 1 TABLET PO (08:13)
--- NOTE | 2021-02-22 09:50 | DCINST_ITS ---
Discharge Instructions Diet Discharge Diet: No restrictions Activity Discharge Activity: Return to Normal Activity Follow Up Care Please Follow Up With: Primary care provider When: Within the next two weeks. Test Results: Test results from this visit will be discussed in further detail at your follow-up appointment, if applicable. Discharge Plan Admission Admit Date/Time: 02/19/21 17:03 Primary Reason for Your Visit: Intertrochanteric right femure fracture Attending Provider: Tra Leo Primary Care Provider: Care Physician,No Primary Consulting Providers: Mario Alberto Morrow Discharge Orders/Prescriptions Prescriptions: New oxycodone 5 mg capsule 5 mg PO Q8H PRN (Reason: pain) 7 Days Qty: 21 RF: 0 Continued multivitamin Tablet 1 tab PO DAILY RF: 0 Referrals / Follow Up: Care Physician,No Primary [Primary Care Provider] - Ibrahima Lauren PA-C [PHYSICIAN SLIP SEAT COVERER] - Disposition Disposition (needs filled in before D/C Order can be placed): Home, self care
--- NOTE | 2021-02-22 10:12 | CASEMGMT ---
Addendum entered by Dione Matt 02/22/21 12:13: TC to therapy, spoke with Rakel. Therapy is recommending a FWW, ext tub bench and BSC. Pt is aware of this as well as needing 24 hour care. Original Note: [employer] W[facility]ER in to pt room to speak with patient regarding HHC. Pt is on phone. Daughter Melvina in room and states pt decided on [facility] in [place] for home therapy. TC to [facility], spoke with Kavya, referral accepted. Faxed referral info at this time. [employer] W[employer]ER back to pt room to make aware of acceptance. Therapy working with patient at this time. Pt dtr states they will rent a walker from the [employer] No script needed. Pt/dtr deny any further questions or concerns.
--- NOTE | 2021-02-22 11:41 | PCM.PN.ORT ---
Subjective Subjective Patient sitting at bedside eating lunch. Her daughter at her side. Patient states she has has little or no pain. Patient states she is ready for discharge home. Patient denies chest pain, shortness of breath, calf pain, nausea vomiting. Objective Data Objective Data Vital Signs: Vital Signs Temp Pulse Resp BP Pulse Ox 97.6 F L 58 L 16 107/66 96 02/22/21 08:04 02/22/21 08:04 02/22/21 08:04 02/22/21 08:04 02/22/21 08:04 Oxygen Delivery Method Room Air Weight: 39.735 kg Body Mass Index (BMI) 17.1 Intake & Output: Intake and Output for Last 24 Hours 02/20/21 02/21/21 02/22/21 23:59 23:59 23:59 Intake Total 1999 2620 / 2920 1217.0 / 1217.0 Output Total 1999 4525 / 4975 1100 / 1100 Balance 0 / 300 -1905 / -2055 117.0 / 117.0 Lab / Micro Data Result Diagrams: 02/22/21 04:58 02/22/21 04:58 Labs: Laboratory Results - last 24 hr 02/21/21 02/21/21 02/22/21 15:50 15:50 04:58 WBC 6.4 6.2 RBC 3.07 L 2.85 L Hgb 9.2 L 8.5 L Hct 28.6 L 26.0 L MCV 93.2 91.2 MCH 30.0 29.8 MCHC 32.2 32.7 RDW Std Deviation 46.6 H 44.8 H RDW Coeff of [place] 13.8 13.4 Plt Count 218 219 MPV 9.0 8.7 Immature Gran % (Auto) 0.500 Neut % (Auto) 78.9 H Lymph % (Auto) 11.6 L [place] % (Auto) 8.6 Eos % (Auto) 0.2 Baso % (Auto) 0.2 Absolute Neuts (auto) 4.9 Absolute Lymphs (auto) 0.72 L Nucleated RBC % 0 Sodium 135 L Potassium 3.8 Chloride 102 Carbon Dioxide 27.0 Anion Gap 6 BUN 10 Creatinine 0.52 L Estim Creat Clear Calc 26.27 Est GFR (MDRD) Af Amer 143 Est GFR (MDRD) Non-Af 119 BUN/Creatinine Ratio 19.1 Glucose 102 Calcium 8.8 02/22/21 04:58 WBC RBC Hgb Hct MCV MCH MCHC RDW Std Deviation RDW Coeff of [place] Plt Count MPV Immature Gran % (Auto) Neut % (Auto) Lymph % (Auto) [place] % (Auto) Eos % (Auto) Baso % (Auto) Absolute Neuts (auto) Absolute Lymphs (auto) Nucleated RBC % Sodium 135 L Potassium 3.5 Chloride 103 Carbon Dioxide 25.0 Anion Gap 7 BUN 9 Creatinine 0.38 L Estim Creat Clear Calc 26.27 Est GFR (MDRD) Af Amer 209 Est GFR (MDRD) Non-Af 172 BUN/Creatinine Ratio 23.8 H Glucose 94 Calcium 8.6 Micro: Microbiology 02/21/21 08:11 Mucosa - Nose SARS-CoV-2 Antigen (Rapid) - Final Radiography Diagnostic Testing: Radiology Impression Hip/Pelvis X-Ray 02/21/21 13:48 IMPRESSION: Intraoperative fluoroscopy as detailed above. at 2231 Reported and signed by: Jony Sheets MD Electronically Signed: Jony Sheets MD at 22:31 EDT Tel , Service support , Physical Exam Narrative Exam the incision is clean dry intact. Patient has good flexion-extension of the right knee ankle and foot. No calf tenderness. Vital signs labs reviewed noted in the medical record. Patient has strong posterior tibial dorsalis pedis pulses. Patient is no respiratory distress, speaking in full sentences. Assessment & Plan Assessment/Plan (1) Fracture, intertrochanteric, right femur: QUALIFIERS: Encounter type: initial encounter Fracture type: closed Fracture alignment: nondisplaced Qualified Code(s): S72.144A - Nondisplaced intertrochanteric fracture of right femur, initial encounter for closed fracture PLAN: 1. Continue all pain medications as prescribed 2. Aspirin 325 mg 1 p.o. every 12 hours x14 days for postop DVT prophylaxis 3. Discharge home today when cleared by medicine 4. Patient will do outpatient therapy 5. Patient will ambulate with walker, weight-bear as tolerated. 6. Patient will follow with Dr. Morrow in 12 to 14 days for staple removal call for appointment 7. Patient can shower 02/25/2021
[2021-02-22 13:40] VITALS: BP 105/86; PULSE 74; RESP 16; TEMP 36.8; O2SAT 96
--- NOTE | 2021-02-22 14:19 | DS.PCM_ITS ---
Documented by User: Fantasma LAWTON 02/22/21 14:26 Providers Date of Admission: 02/19/21 Primary Care Physician: Trisha Primary Care Phys Consultations 02/19/21 17:35 Consult: Orthopedics Routine Consulting Provider: Mario Alebrto Morrow Reason for Consult: right hip fxr EMERGENT Consult: No MD Notified: Yes Date Notified: 02/19/21 Time Notified: 17:02 Method of Notification: Verbal Reason For Visit: HIP FX Diagnosis Discharge Diagnosis (1) Fracture, intertrochanteric, right femur: Status: Acute Code(s): S72.141A - Displaced intertrochanteric fracture of right femur, initial encounter for closed fracture Qualifiers: Encounter type: initial encounter Fracture alignment: nondisplaced Fracture type: closed Qualified Code(s): S72.144A - Nondisplaced intertrochanteric fracture of right femur, initial encounter for closed fracture Medications at Discharge Home Medications multivitamin 1 tab PO DAILY 02/19/21 oxycodone 5 mg PO Q8H PRN 7 Days #21 cap 02/22/21 Hospital Course Summary of Care Provided Minutes Spent on Discharge: 35 Hospital Course: 1) Intertrochanteric right femur fracture Status post ORIF conducted on 02/21. Patient will follow up with Dr. Morrow in 12 to 14 days for staple removal. Aspirin 325 mg p.o. twice daily x2 weeks for DVT prophylaxis, per orthopedics. 2) Hyponatremia Resolved, currently 135. 3) vitamin D deficiency Vitamin D 50,000 units 1 time per week initiated. Will need to be discharged on 800 units for 6 to 8 weeks. 4) mild normocytic anemia Stable. 5) protein calorie malnutrition BMI 17.1 with evidence of muscle and fat loss. Patient is cachectic in appearance. Plan; diet consult ordered. Patient seen by Fantasma Pascual PA-C, under the supervision of Dr. Leo. Physical Exam Narrative Patient is an 85-year-old female comfortably resting in bed status post ORIF of right femur. Patient reports no change or progression in symptoms from yesterday, reports that pain is controlled on current pain regimen. Denies chest pain, shortness of breath, palpitations, hemoptysis, sputum production, fever, chills, N/V/D. Const alert, oriented x3 and no apparent distress HEENT normocephalic, head/scalp atraumatic, hearing grossly normal bilaterally and moist oral mucous membranes Eyes PERRL, EOMs intact bilaterally and conjunctivae normal Neck no lymphadenopathy, supple and no JVD Resp normal respiratory effort, no retractions, no use of accessory muscles and clear to auscultation bilaterally Cardio regular rate, regular rhythm, no murmurs and no JVD GI normal to inspection, nondistended, normoactive bowel sounds, soft to palpation and non-tender Extremity normal to inspection, full ROM and no clubbing, cyanosis or edema Skin no rashes or lesions noted, no wounds and skin turgor normal Neuro CN's II-XII intact bilaterally Psych affect normal Weight / BMI Weight Weight: 87 lb 9.611 oz Body Mass Index (BMI) 17.1 ABG / Lab / Microbiology Data Result Diagrams: 02/22/21 04:58 02/22/21 04:58 Laboratory: Laboratory Results - last 24 hr 02/21/21 02/21/21 02/22/21 15:50 15:50 04:58 WBC 6.4 6.2 RBC 3.07 L 2.85 L Hgb 9.2 L 8.5 L Hct 28.6 L 26.0 L MCV 93.2 91.2 MCH 30.0 29.8 MCHC 32.2 32.7 RDW Std Deviation 46.6 H 44.8 H RDW Coeff of [place] 13.8 13.4 Plt Count 218 219 MPV 9.0 8.7 Immature Gran % (Auto) 0.500 Neut % (Auto) 78.9 H Lymph % (Auto) 11.6 L [place] % (Auto) 8.6 Eos % (Auto) 0.2 Baso % (Auto) 0.2 Absolute Neuts (auto) 4.9 Absolute Lymphs (auto) 0.72 L Nucleated RBC % 0 Sodium 135 L Potassium 3.8 Chloride 102 Carbon Dioxide 27.0 Anion Gap 6 BUN 10 Creatinine 0.52 L Estim Creat Clear Calc 26.27 Est GFR (MDRD) Af Amer 143 Est GFR (MDRD) Non-Af 119 BUN/Creatinine Ratio 19.1 Glucose 102 Calcium 8.8 02/22/21 04:58 WBC RBC Hgb Hct MCV MCH MCHC RDW Std Deviation RDW Coeff of [place] Plt Count MPV Immature Gran % (Auto) Neut % (Auto) Lymph % (Auto) [place] % (Auto) Eos % (Auto) Baso % (Auto) Absolute Neuts (auto) Absolute Lymphs (auto) Nucleated RBC % Sodium 135 L Potassium 3.5 Chloride 103 Carbon Dioxide 25.0 Anion Gap 7 BUN 9 Creatinine 0.38 L Estim Creat Clear Calc 26.27 Est GFR (MDRD) Af Amer 209 Est GFR (MDRD) Non-Af 172 BUN/Creatinine Ratio 23.8 H Glucose 94 Calcium 8.6 Microbiology: Microbiology 02/21/21 08:11 Mucosa - Nose SARS-CoV-2 Antigen (Rapid) - Final Radiography Diagnostic Testing: Radiology Impression Hip/Pelvis X-Ray 02/21/21 13:48 IMPRESSION: Intraoperative fluoroscopy as detailed above. at 2231 Reported and signed by: Jony Sheets MD Electronically Signed: Jony Sheets MD at 22:31 EDT Tel , Service support , D/C Instructions Discharge Diet: No restrictions Please Follow Up With: Primary care provider When: Within the next two weeks. Meaningful Use Info Meaningful Use Diagnoses (Choose all that apply): None applicable Discharge Plan Admission Admit Date/Time: 02/19/21 17:03 Primary Reason for Your Visit: Intertrochanteric right femure fracture Attending Provider: Tra Leo Primary Care Provider: Care Physician,No Primary Consulting Providers: Mario Alberto Morrow Instructions Additional Instructions / Restrictions: Aspirin 325 mg 1 p.o. every 12 hours x14 days for postop DVT prophylaxis Discharge Orders/Prescriptions Prescriptions: New oxycodone 5 mg capsule 5 mg PO Q8H PRN (Reason: pain) 7 Days Qty: 21 RF: 0 Continued multivitamin Tablet 1 tab PO DAILY RF: 0 Referrals / Follow Up: Care Physician,No Primary [Primary Care Provider] - Ibrahima Lauren PA-C [PHYSICIAN ONCOLOGY ADMIN] - Disposition Disposition (needs filled in before D/C Order can be placed): Home Health Service Documented by User: Dr. Tra Leo MD 02/22/21 14:53 Providers Date of Admission: 02/19/21 Reason For Visit: HIP FX Medications at Discharge Home Medications multivitamin 1 tab PO DAILY 02/19/21 oxycodone 5 mg PO Q8H PRN 7 Days #21 cap 02/22/21 ABG / Lab / Microbiology Data Result Diagrams: 02/22/21 04:58 02/22/21 04:58 Discharge Plan Admission Admit Date/Time: 02/19/21 17:03 Primary Reason for Your Visit: Intertrochanteric right femure fracture Attending Provider: Tra Leo Primary Care Provider: Care Physician,No Primary Consulting Providers: Mario Alberto Morrow Instructions Additional Instructions / Restrictions: Aspirin 325 mg 1 p.o. every 12 hours x14 days for postop DVT prophylaxis Discharge Orders/Prescriptions Prescriptions: New oxycodone 5 mg capsule 5 mg PO Q8H PRN (Reason: pain) 7 Days Qty: 21 RF: 0 Continued multivitamin Tablet 1 tab PO DAILY RF: 0 Referrals / Follow Up: Care Physician,No Primary [Primary Care Provider] - Ibrahima Lauren PA-C [PHYSICIAN ONCOLOGY ADMIN] - Disposition Disposition (needs filled in before D/C Order can be placed): Home Health Se rvice Charges/Coding Addendum Addendum: Dr. Leo: I personally reviewed the chart and examined the patient, and agree with the above findings. 85-year-old female presented from home after mechanical fall with a intertrochanteric right femur fracture. She went to the OR on 02/21/2021 and has done well. We did recommend discharge to a long-term facility however she states that she has lot of help at home and would much prefer to go home. She was provided with all the assistive devices she could need per PT as well as home health care, and was discharged home today. Visit Charges Inpatient E&M: 55327 Disch Hosp
== END 2021-02-22 13:36 | disposition home health service (06) | DRG 480 ==
LOC: ED 16:38 → MS3 17:17
PROVIDERS: Nurse Practitioner Family; Orthopaedic Surgery; Physician Assistant; Emergency Provider Emergency Medicine; Visit Provider Family Medicine
PROC: 0QS604Z Reposition Right Upper Femur with Internal Fixation Device, Open Approach (ICD-10-PCS; CPT 27245; principal; 2021-02-21 12:30)
DX: S72.144A Nondisplaced intertrochanteric fracture of right femur, initial encounter for closed fracture (principal); H91.93 Unspecified hearing loss, bilateral; S60.311A Abrasion of right thumb, initial encounter; E55.9 Vitamin D deficiency, unspecified; D64.9 Anemia, unspecified; E43 Unspecified severe protein-calorie malnutrition; Z68.1 Body mass index [BMI] 19.9 or less, adult; E87.1 Hypo-osmolality and hyponatremia; W01.0XXA Fall on same level from slipping, tripping and stumbling without subsequent striking against object, initial encounter; Y93.9 Activity, unspecified; Y92.480 Sidewalk as the place of occurrence of the external cause
CPT/HCPCS: 36415; 73502; 76000; 80048; 80053; 82306; 85025; 85027; 86850; 86900; 86901; 87426; 93005; 97162; 97166; 97802; 99283; C1713; J7030; A4216; J2405; J3490

== ENCOUNTER 2023-10-04 04:48 | Inpatient (IN) | payer OTHER, SELFPAY ==
[2023-10-04 04:49] VITALS: BP 97/68; PULSE 100; RESP 16; TEMP 36.6; O2SAT 100; BMI 16.5
--- NOTE | 2023-10-04 05:20 | CT_ITS ---
EXAM: CT ABDOMEN AND PELVIS WITH INTRAVENOUS CONTRAST CLINICAL INDICATION: Vomiting TECHNIQUE: Helically acquired images were obtained of the abdomen and pelvis with intravenous contrast. This CT exam was performed using one or more of the following dose reduction techniques: automated exposure control, adjustment of the mA and/or kV according to patient size, and/or use of iterative reconstruction technique. CONTRAST: 75 cc of Isovue-370 IV. RADIATION DOSE: CTDIvol = 14.30 mGy, DLP = 253.24 mGy-cm COMPARISON: No relevant prior studies available. FINDINGS: LOWER THORAX: Moderate right and slight left pleural effusion. Atelectasis in the lung bases bilaterally. No cardiomegaly. ABDOMEN: LIVER: Innumerable metastases throughout the liver some of which are very bulky. GALLBLADDER AND BILE DUCTS: Cholelithiasis. No gallbladder distention or wall edema. No intra- or extrahepatic biliary ductal dilation. PANCREAS: Unremarkable. No focal cystic or solid mass. SPLEEN: Unremarkable. Normal size without focal cystic or solid mass. ADRENALS: Unremarkable. No nodules. KIDNEYS AND URETERS: Simple bilateral renal cysts. No follow-up of these simple cysts is necessary. Normal renal size and position. No hydronephrosis. STOMACH AND BOWEL: Annular constricting mass measuring 4.8 x 4 x 4.3 cm involving the distal transverse colon consistent with a colon cancer. Numerous diverticula without diverticulitis. No stomach or bowel distention. PELVIS: APPENDIX: No evidence of acute appendicitis. BLADDER: Unremarkable. REPRODUCTIVE: Absent or atrophic uterus. ABDOMEN and PELVIS: INTRAPERITONEAL SPACE: Mild ascites. No free air. BONES/JOINTS: Nail fixation right hip. No suspicious lytic or blastic abnormality. SOFT TISSUES: Diffuse soft tissue edema suggesting anasarca. No discrete abdominal or pelvic wall hernia. VASCULATURE: Unremarkable. Abdominal aorta is non-dilated. LYMPH NODES: Retrocrural and retroperitoneal adenopathy. CT/Abdomen/Pelvis W IV Cont ONLY IMPRESSION: 1. Annular constricting mass measuring 4.8 x 4 x 4.3 cm involving the distal transverse colon consistent with a colon cancer. 2. Innumerable metastases throughout the liver some of which are very bulky. 3. Mild ascites. 4. Retrocrural and retroperitoneal adenopathy. 5. Diffuse soft tissue edema suggesting anasarca. 6. Moderate right and slight left pleural effusion. 7. Atelectasis in the lung bases bilaterally. 8. Cholelithiasis. 9. Numerous diverticula without diverticulitis. Electronically Signed: Mario Alberto Petersen MD at 6:45 EST ,
--- NOTE | 2023-10-04 05:21 | EX.ED.DYSGE1 ---
HPI History of Present Illness Chief Complaint: General Illness Informant: patient and family Narrative Narrative: Patient presents with nausea every time she tries to eat. History is from patient and I believe her daughter. They both feel this is likely been going on for 1 or 2 weeks. Patient states every time she eats she feels sick so she stops eating. It does not sound like she is actually vomited. I think she has had some soft stools but no diarrhea. She denies pain at any time. She denies chest pain or trouble breathing. It is very hard to get some of the details. After asking most questions, the patient and daughter will look back and forth and either answer it or state I do not think so. They are not sure if she has lost weight. Patient evidently was in [facility] 2 weeks ago had low potassium and got IV potassium. I do not think she was admitted but I am not sure. I asked what brought her into that hospital and the patient states her potassium was low. But I cannot get from her or her daughter what symptoms prompted her to go into the hospital. It sounds like outpatient labs were not done. When I ask if she had the same symptoms a couple weeks ago they state I do not think so. But I am still not sure why she went to [facility] 2 weeks ago. They are not sure if the patient's lost any weight. They are not sure if she looks different or thinner. Patient denies chronic medical conditions. No medications No allergies Surgeries include hysterectomy and C-sections. She does not think her gallbladder is taken out. No known history of cancer. [facility] Medical History Hearing loss, left Hearing loss, right Wears hearing aid in both ears Home Medications NK 10/04/23 [History Last Taken Unknown] Allergy/AdvReac Type Severity Reaction Status Date / Time No Known Allergies Allergy Verified 10/04/23 04:49 Family History Other Heart disease Surgical History History of History of hysterectomy Social History Smoking Status: Never smoker ROS ROS ED ROS Narrative A complete review of systems was performed and is negative except as documented in the history of present illness. Some specific details below. Constitutional: No recent fevers or chills. Some generalized malaise but no myalgias. EYE: No visual complaints or pain. ENT: No difficulty swallowing. No swelling. No pain. No GERD symptoms. CV: No chest pain or palpitations. Respiratory: No dyspnea. No hemoptysis. No difficulty taking breaths. GI: Please see history of present illness. She adamantly denies pain. : No frequency dysuria or hematuria. Musculoskeletal: No recent trauma. No pains. Skin: No rash. Nondiaphoretic. Neuro: No weakness or numbness. Endocrine: No polyuria or polydipsia. EXAM Physical Exam Narrative Exam Narrative: CONSTITUTIONAL: Patient is nontoxic in appearance. The patient looks comfortable. But she looks quite frail and thin. But the best information I get is that she has been thin for a long time. This is not an acute or recent weight loss. HEENT: No notable trauma. Mucous membranes mildly dry. EYES: No conjunctival injection. CARDIOVASCULAR: Regular rate. Regular rhythm. No notable murmur. No JVD. RESPIRATORY: No respiratory distress. Breathing is unlabored. No wheezes. No rhonchi. No rales. No pain with a deep breath. GASTROINTESTINAL: Mildly protuberant but not truly distended. It seems normal per patient. Bowel sounds are normal. No tenderness. No guarding. No rebound. No palpable mass. No bruit. Overall abdomen is quite benign. GENITOURINARY: No tenderness over the bladder. No CVA tenderness. MUSCULOSKELETAL: Atraumatic. Trace bilateral peripheral edema which is apparently not new. NEUROLOGICAL: Patient is alert and appropriate. No focal deficit noted. SKIN: No noted rashes. No diaphoresis. PSYCHIATRIC: Patient is calm. Mood is appropriate. Const Vital Signs: 10/04/23 04:49 10/04/23 04:53 10/04/23 07:08 Temperature 97.8 F Temperature Source Temporal Pulse Rate 100 Respiratory Rate 16 20 H Respiratory Effort Normal Non-Labored Respiratory Pattern Normal Blood Pressure 97/68 147/81 H Blood Pressure Mean 77 103 Pulse Ox 100 99 Oxygen Delivery Method Room Air MDM MDM MDM Narrative Medical decision making narrative: My independent interpretation of the patient's CT of the abdomen shows a liver with extensive metastasis. No sign of obstruction is seen. Final reading does note an apple core type lesion in the end of the transverse colon. This is overall consistent with metastatic colon cancer. Patient's CBC shows mild elevation of white count minimal anemia. Platelets are normal. Electrolytes show minimally low sodium 135. Although her creatinine is normal at 0.97. This is more than doubling of her baseline. Her GFR is only 58. Creatinine clearance is only 25. I believe this is an acute kidney injury even though her creatinine is normal. This is keeping in mind that the patient only weighs 38 kg with a BMI of 16. She is given IV fluids here. Hepatic function showed elevation of total bilirubin and AST. Alk phos was up a fair amount at 355 but she denies pain. Lipase is normal at 24. I had a discussion with her and her daughter. We discussed that we could attempt managing this as an outpatient. There really is not an established physician to follow-up with. The daughter and the patient are concerned because she is to the point she really cannot eat or drink. She does have sign of acute kidney injury.It appears as though she is lost weight. I blame that most likely this is metastatic colon cancer. This is not curable. There may be some management options for her. Coming in the hospital, hydrating her, controlling her symptoms and getting some options is appropriate. The patient is very weak. She cannot eat or drink and she has an acute kidney injury. Her urine shows nitrites but no significant white cells. This will be sent for a culture. Lab Data Attestation: I reviewed the patient's lab results. Labs: Laboratory Results - last 24 hr 10/04/23 10/04/23 05:35 06:45 WBC 13.8 H RBC 3.23 L Hgb 10.0 L Hct 31.4 L MCV 97.2 MCH 31.0 MCHC 31.8 L RDW Std Deviation 66.8 H RDW Coeff of [place] 18.6 H Plt Count 187 MPV 9.1 Immature Gran % (Auto) 0.900 Neut % (Auto) 81.1 H Lymph % (Auto) 12.0 L [place] % (Auto) 5.6 Eos % (Auto) 0.0 Baso % (Auto) 0.4 Absolute Neuts (auto) 11.2 H Absolute Lymphs (auto) 1.65 Nucleated RBC % 0 Differential Comment SCANNED Sodium 135 L Potassium 4.0 Chloride 107 Carbon Dioxide 20.0 L Anion Gap 8 BUN 21 H Creatinine 0.97 Estim Creat Clear Calc 25.17 Est GFR (MDRD) Af Amer 70 Est GFR (MDRD) Non-Af 58 L BUN/Creatinine Ratio 21.7 H Glucose 97 Calcium 8.6 Total Bilirubin 2.40 H AST 91 H ALT 43 Alkaline Phosphatase 355 H Total Protein 6.3 L Albumin 1.9 L Globulin 4.4 H Albumin/Globulin Ratio 0.4 L Lipase 24 Urine Color Yellow Urine Clarity Clear Urine pH 5.0 Ur Specific [place] 1.020 Urine Protein 30 H Urine Glucose (UA) Normal Urine Ketones 5 H Urine Occult Blood 10 H Urine Nitrite Positive H Urine Bilirubin 3 H Urine Urobilinogen 8 H Ur Leukocyte Esterase 25 H Urine RBC 0 SEEN Urine WBC 0-5 SEEN Ur Squamous Epith Cells 0 SEEN Urine Bacteria RARE Urine Mucus 0 SEEN Radiography Diagnostic Testing: Clinical Impression(s) from Imaging Studies Abdomen/Pelvis CT 10/04/23 05:20 IMPRESSION: 1. Annular constricting mass measuring 4.8 x 4 x 4.3 cm involving the distal transverse colon consistent with a colon cancer. 2. Innumerable metastases throughout the liver some of which are very bulky. 3. Mild ascites. 4. Retrocrural and retroperitoneal adenopathy. 5. Diffuse soft tissue edema suggesting anasarca. 6. Moderate right and slight left pleural effusion. 7. Atelectasis in the lung bases bilaterally. 8. Cholelithiasis. 9. Numerous diverticula without diverticulitis. Electronically Signed: Mario Alberto Petersen MD at 6:45 EST , Management Discussion w/another healthcare provider: Hospitalist Discharge Plan Triage Chief Complaint: General Illness ED Provider: Jaquan Nunez Dx/Rx/DC Orders Clinical Impression: Acute kidney injury, Metastatic colon cancer to liver, Intractable nausea and vomiting, Dehydration Prescriptions: No Action NK Primary Care Provider: PARVEEN FIELDS Referrals: PARVEEN FIELDS CRNP [Primary Care Provider] - Disposition Disposition: [facility]
[2023-10-04] MEDS: Ondansetron 4 MG/2 ML Vial IV (05:44)
[2023-10-04] MEDS: 0.9% Normal Saline (1000mL) 500 ML 1000 ML IV (05:44)
[2023-10-04 05:49] LABS: Absolute Lymphocyte Count 1.65 X10^3/uL (0.83-4.51); Absolute Neutrophil Count 11.2 X10^3/uL (2.0-7.7); Basophil# 0.06 X10^3/uL; Basophil% 0.4 % (0-1); Hematocrit 31.4 % (37-47); Lymphocyte # 1.65 X10^3/ul (0.83-4.51); Mean Corp Hgb Conc 31.8 g/dL (32-36); Mean Corpuscular Volume 97.2 fL (81-99); Mean Platelet Vol. 9.1 fl (6.2-12.0); Monocyte# 0.77 X10^3/uL; Monocyte% 5.6 % (0-10); NRBC Flagged by Analyzer 0 % (0-5); Neutrophil # 11.19 X10^3/uL (2.7-7.7); Neutrophil % 81.1 % (47-70); POSITIVE MORPHOLOGY YES; Platelet Count 187 K/mm3 (150-450); RBC Distribution Width CV 18.6 % (11.6-14.6); RBC Distribution Width SD 66.8 fl (35.1-43.9); Red Blood Count 3.23 M/mm3 (4.2-5.4); White Blood Count 13.8 K/mm3 (4.4-11.0)
[2023-10-04 05:53] LABS: Differential Indicated SCAN CRITERIA MET
[2023-10-04 06:11] LABS: ALB/GLOB Ratio 0.4 RATIO (0.9-2.4); AST(SGOT) 91 U/L (15-37); Alanine Aminotransfer ALT/SGPT 43 U/L (13-56); Albumin, Serum 1.9 g/dL (3.2-5.0); Alkaline Phosphatase 355 U/L (45-117); Anion Gap 8 (5-15); BUN 21 mg/dL (7-18); BUN/Creat Ratio 21.7 RATIO (10-20); Calcium,Total 8.6 mg/dL (8.5-10.1); Chloride 107 mmol/L (98-107); Creatinine, Serum 0.97 mg/dL (0.55-1.02); EST Glomerular Filtration Rate 58 mL/min (>60); Est Glom Filt Rate - Afr Amer 70 mL/min (>60); Estimated Creatinine Clearance 25.17 ml/min; Globulin 4.4 g/dL (2.2-4.2); Glucose 97 mg/dL (74-106); Lipase 24 U/L (13-75); Protein, Total 6.3 g/dL (6.4-8.2); Sodium Level 135 mmol/L (136-145)
[2023-10-04 06:50] LABS: Mucous, Urine 0 SEEN /hpf (<or=2+); Red Blood Cells-Urine 0 SEEN /hpf (0-5); Squamous Epithelial Cells - UA 0 SEEN /hpf (5-10)
[2023-10-04 07:08] VITALS: BP 147/81; RESP 20; O2SAT 99
[2023-10-04 07:10] LABS: Differential Comment SCANNED
[2023-10-04 07:15] LABS: Color, Urine Yellow (Yellow); Glucose, Dipstick Normal (Normal); Ketone-Dipstick 5 mg/dl (Negative); Leukocyte Esterase-Dipstick 25 /ul (Negative); Nitrite-Dipstick Positive (Negative); Occult Blood-Urine 10 /ul (Negative); Protein-Dipstick 30 mg/dl (Negative); Urine Clarity Clear (Clear); Urine Urobilinogen 8 mg/dl (Normal)
[2023-10-04 07:34] LABS: Urine Bilirubin Dipstick 3 mg/dL (Negative)
[2023-10-04 07:35] LABS: Bacteria RARE /hpf (None Seen); White Blood Cells 0-5 SEEN /hpf (0-5)
[2023-10-04 07:51] VITALS: BP 127/81; RESP 18; O2SAT 94
--- NOTE | 2023-10-04 08:31 | PCM.HP.STD ---
HPI - General General Date of Admission: 10/04/23 Date of Service: 10/04/23 Chief Complaint: Intractable nausea, inability to [place] PO HPI Narrative SONG FONG, is a 87 F w/ no past medical history presented to [facility] ED 10/04/2023 for intractable nausea, inability to tolerate p.o. and generalized weakness for at least 2 weeks. In the ED she was found to have a white blood cell count of 13.8, hemoglobin of 10 and creatinine of 0.9 that with a baseline of about 0.5 and elevated bili and liver enzymes. She had a CT scan which showed annular constricting mass measuring 4.8 x 4 x 4.3 cm involving the distal transverse colon consistent with colon cancer and innumerable metastasis in the liver with moderate right-sided pleural effusion and diffuse soft tissue edema suggesting anasarca. Given patient's weakness and inability to tolerate p.o. as well as concern for dehydration with relative SENTHIL hospitalist contacted for admission. Patient seen with family member at bedside. 2 weeks ago she was feeling so weak that she went to [place] ED and was found to be hypokalemic and that was replaced, went home and has continued to have weakness but has progressively been so nauseous she cannot eat, has felt like she is needed to vomit but has not had any emesis but that is primarily because she stops eating, has some soft stool without overt diarrhea, said occasionally she will get some sharp pains in her abdomen but that is rare. Has no other complaints at this time. [facility] Medical History Hearing loss, left Hearing loss, right Wears hearing aid in both ears Home Medications NK 10/04/23 [History Last Taken Unknown] Allergy/AdvReac Type Severity Reaction Status Date / Time No Known Allergies Allergy Verified 10/04/23 04:49 Family History Other Heart disease Surgical History History of History of hysterectomy Social History Smoking Status: Never smoker ROS ROS Narrative General: Denies fever/chills HENT: Denies headache, denies stuffy nose, denies sore throat EYES: Some chronic changes in vision Resp: Denies cough, denies shortness of breath Cardiac: Denies chest pain GI: Intractable nausea, occasional sharp abdominal pain, loose stool : Denies changes in urination Extremity: Denies swelling MSK: Generalized weakness Neuro: Denies any numbness/tingling Heme: Denies any bleeding or bruising Skin: Denies rashes Psychiatric: No complaints voiced Vital Signs Vital Signs Vital Signs: 10/04/23 04:49 10/04/23 04:53 10/04/23 07:08 Temperature 97.8 F Temperature Source Temporal Pulse Rate 100 Respiratory Rate 16 20 H Respiratory Effort Normal Non-Labored Respiratory Pattern Normal Blood Pressure 97/68 147/81 H Blood Pressure Mean 77 103 Pulse Ox 100 99 Oxygen Delivery Method Room Air 10/04/23 07:51 Temperature Temperature Source Pulse Rate Respiratory Rate 18 Respiratory Effort Respiratory Pattern Blood Pressure 127/81 H Blood Pressure Mean 96 Pulse Ox 94 Oxygen Delivery Method Weight Weight: 38.3 kg Body Mass Index (BMI) 16.5 Physical Exam Narrative General: Alert, very thin HEENT: Atraumatic, normocephalic Eyes: Normal conjunctiva, extraocular movements grossly intact Neck: Supple Respiratory: Clear to auscultation bilaterally, normal respiratory effort Cardiovascular: Regular rate and rhythm GI: Protuberant and somewhat distended Extremities: No edema Musculoskeletal: Moving all extremities Neuro: No overt focal neurological deficits Skin: No rashes appreciated Psych: Cooperative Results Lab / Micro Data 10/04/23 05:35 10/04/23 05:35 Labs: Laboratory Results - last 24 hr 10/04/23 05:35: WBC 13.8 H, RBC 3.23 L, Hgb 10.0 L, Hct 31.4 L, MCV 97.2, MCH 31.0, MCHC 31.8 L, RDW Std Deviation 66.8 H, RDW Coeff of [place] 18.6 H, Plt Count 187, MPV 9.1, Immature Gran % (Auto) 0.900, Neut % (Auto) 81.1 H, Lymph % (Auto) 12.0 L, [place] % (Auto) 5.6, Eos % (Auto) 0.0, Baso % (Auto) 0.4, Absolute Neuts (auto) 11.2 H, Absolute Lymphs (auto) 1.65, Nucleated RBC % 0, Differential Comment SCANNED, Sodium 135 L, Potassium 4.0, Chloride 107, Carbon Dioxide 20.0 L, Anion Gap 8, BUN 21 H, Creatinine 0.97, Estim Creat Clear Calc 25.17, Est GFR (MDRD) Af Amer 70, Est GFR (MDRD) Non-Af 58 L, BUN/Creatinine Ratio 21.7 H, Glucose 97, Calcium 8.6, Total Bilirubin 2.40 H, AST 91 H, ALT 43, Alkaline Phosphatase 355 H, Total Protein 6.3 L, Albumin 1.9 L, Globulin 4.4 H, Albumin/Globulin Ratio 0.4 L, Lipase 24 10/04/23 06:45: Urine Color Yellow, Urine Clarity Clear, Urine pH 5.0, Ur Specific [place] 1.020, Urine Protein 30 H, Urine Glucose (UA) Normal, Urine Ketones 5 H, Urine Occult Blood 10 H, Urine Nitrite Positive H, Urine Bilirubin 3 H, Urine Urobilinogen 8 H, Ur Leukocyte Esterase 25 H, Urine RBC 0 SEEN, Urine WBC 0-5 SEEN, Ur Squamous Epith Cells 0 SEEN, Urine Bacteria RARE, Urine Mucus 0 SEEN Micro: Microbiology 10/04/23 05:47 Mucosa - Nasopharyngeal SARS-CoV-2, Influenza & RSV (PCR) - Final Imagaing Radiology Impression Abdomen/Pelvis CT 10/04/23 05:20 IMPRESSION: 1. Annular constricting mass measuring 4.8 x 4 x 4.3 cm involving the distal transverse colon consistent with a colon cancer. 2. Innumerable metastases throughout the liver some of which are very bulky. 3. Mild ascites. 4. Retrocrural and retroperitoneal adenopathy. 5. Diffuse soft tissue edema suggesting anasarca. 6. Moderate right and slight left pleural effusion. 7. Atelectasis in the lung bases bilaterally. 8. Cholelithiasis. 9. Numerous diverticula without diverticulitis. Electronically Signed: Mario Alberto Petersen MD at 6:45 EST , Assessment & Plan Assessment/Plan (1) Metastatic colon cancer to liver: (2) Intractable nausea and vomiting: (3) Dehydration: (4) Acute kidney injury: PLAN: Plan # Intractable nausea and inability to tolerate p.o. -Likely secondary to metastatic cancer -IVF, Ensure -Zofran as needed -Supportive care #Suspected colon cancer w/ mets to liver -Patient with elevated bili, alk phos, AST, CT scan with annular constricting mass measuring 4.8 x 4 x 4.3 cm involving distal transverse colon consistent with colon cancer and liver with a metastasis -Patient unable to tolerate p.o. and is very weak -Oncology consulted #Suspect SENTHIL -Patient previously with creatinine this morning 0.5 range and given BMI suspect creatinine does run in the range however today has elevated BUN at 21 and creatinine of 0.97 suggesting relative SENTHIL -Gentle IV fluids -Continue supportive care # Moderate right-sided pleural effusion -Patient with no increased shortness of breath or other respiratory complaints -May be able to consider diagnostic thoracentesis for cancer cells however unclear if this is large enough collection to obtain fluid # Concern for malnutrition -BMI 16.5 -Poor p.o. intake/inability to tolerate p.o. -Dietitian consult -Ensure #DVT ppx: Heparin subcu Tia Turk MD Time spent in the patient's overall evaluation,decision-making process, review of diagnostic data, adjustment of management, discussion with other providers, nursing nursing and ancillary staff involved in patient's care documentation, 57 minutes Charges/Coding Visit Charges Inpatient E&M: 25214 Init Hosp L2
[2023-10-04 09:28] VITALS: BP 144/79; PULSE 81; RESP 18; TEMP 36.6; O2SAT 100
[2023-10-04 09:31] VITALS: BMI 16.5
[2023-10-04] MEDS: Heparin Injection (Vial) 5,000 UNIT/ML VIAL 5000 UNIT SC ×2 (10:05→21:50)
[2023-10-04] MEDS: Ensure Plus High Protein 120 ML LIQUID PO ×3 (10:05→17:34)
[2023-10-04] MEDS: 0.9% Normal Saline (1000mL) 1,000 ML 50 ML IV (10:06)
[2023-10-04 14:19] VITALS: BP 115/74; PULSE 88; RESP 16; TEMP 36.7; O2SAT 99
--- NOTE | 2023-10-04 14:57 | ONC.CONSULT ---
Assessment & Plan Assessment/Plan (1) Metastatic colon cancer to liver: Status: Acute Code(s): C18.9 - Malignant neoplasm of colon, unspecified; C78.7 - Secondary malignant neoplasm of liver and intrahepatic bile duct (2) Intractable nausea and vomiting: Status: Acute Code(s): R11.2 - Nausea with vomiting, unspecified (3) Dehydration: Status: Acute Code(s): E86.0 - Dehydration (4) Severe protein-calorie malnutrition: Status: Acute Code(s): E43 - Unspecified severe protein-calorie malnutrition Plan: Impression: -CT evidence of metastatic colon cancer with high burden of liver metastases. -Severe protein calorie malnutrition secondary to liver metastases. -Nausea secondary to liver metastases. -Generalized debility secondary to above. -KPS is 20-30%. -Discussed CT findings with patient and family. Explained that findings are consistent with metastatic colon cancer. Cannot know with certainty without biopsy. She is not a candidate for tumor directed therapy including chemotherapy and/or immunotherapy. We discussed the potential for biopsy of liver lesion for purposes of knowing diagnosis with certainty and closure. We also discussed hospice care. Patient's daughter and son-in-law are going to discuss with the patient and the rest of the family about whether or not they would like to have a biopsy done. Plan: -Change IV Zofran to p.o. -Imaging guided biopsy of liver if they desire. -Otherwise consult hospice tomorrow for home hospice care. Total time spent today 60 min including personally reviewing CT images, lab work, examining patient and discussion as outlined above. HPI Consult Data Date of Service:: 10/04/23 PCP / Referring Provider: RADHA COSTA Attending: Dr. Tia Turk MD Chief Complaint Chief Complaint: Suspected metastatic colon cancer History of Present Illness History of Present Illness: HPI: the patient is an 87-year-old female who has no significant past medical history. She has been feeling fatigued and had experienced loss of appetite starting sometime last fall. She has had progressive weight loss and over the last few weeks has developed worsening appetite associated with nausea. Evidently was seen at [place] emergency room on September 19. She was found to be hypokalemic. Given replacement. Discharged. Presented to the ED here last evening with similar complaints. Has not been able to walk in the last couple weeks. CT scans were performed. Demonstrated findings consistent with metastatic colon cancer with a circumferential lesion of the transverse colon and significant burden of metastatic disease to the liver. According to her daughter, patient's bowels have been moving on occasion with loose stools. No black or bloody stools have been seen. She received Zofran in the emergency room around 5:00 this morning. No nausea since. She was able to drink some Ensure, water and had some Jell-O throughout the day today. She denies pain. Advanced Directives Power of Head Charger: No Living Will: No [facility] Medical History Hearing loss, left Hearing loss, right Wears hearing aid in both ears Home Medications NK 10/04/23 [History Last Taken Unknown] Allergy/AdvReac Type Severity Reaction Status Date / Time No Known Allergies Allergy Verified 10/04/23 04:49 Family History Other Heart disease Surgical History History of History of hysterectomy Social History Smoking Status: Never smoker Physical Exam Const Constitutional Narrative: Frail and cachectic appearing. Neck no lymphadenopathy Lymph Lymphatic Narrative: No supraclavicular adenopathy. Resp normal respiratory effort Cardio regular rhythm GI GI Narrative: Protuberant in the upper abdomen. Tender hepatomegaly. Extremity Extremity Narrative: Mild pitting edema bilateral lower extremities. Vital Signs Temperature 98.0 F 10/04/23 14:19 Temperature Source Temporal 10/04/23 14:19 Pulse Rate 88 10/04/23 14:19 Respiratory Rate 16 10/04/23 14:19 Respiratory Effort Normal, Non-Labored 10/04/23 04:53 Respiratory Pattern Normal 10/04/23 04:53 Blood Pressure 115/74 10/04/23 14:19 Blood Pressure Mean 87 10/04/23 14:19 Blood Pressure Source Monitor 10/04/23 14:19 Blood Pressure Position Semi-Fowlers 10/04/23 14:19 Blood Pressure Location Left Arm 10/04/23 14:19 Pulse Ox 99 10/04/23 14:19 Oxygen Delivery Method Room Air 10/04/23 14:19 Laboratory Results - last 24 hr 10/04/23 05:35: WBC 13.8 H, RBC 3.23 L, Hgb 10.0 L, Hct 31.4 L, MCV 97.2, MCH 31.0, MCHC 31.8 L, RDW Std Deviation 66.8 H, RDW Coeff of [place] 18.6 H, Plt Count 187, MPV 9.1, Immature Gran % (Auto) 0.900, Neut % (Auto) 81.1 H, Lymph % (Auto) 12.0 L, [place] % (Auto) 5.6, Eos % (Auto) 0.0, Baso % (Auto) 0.4, Absolute Neuts (auto) 11.2 H, Absolute Lymphs (auto) 1.65, Nucleated RBC % 0, Differential Comment SCANNED, Sodium 135 L, Potassium 4.0, Chloride 107, Carbon Dioxide 20.0 L, Anion Gap 8, BUN 21 H, Creatinine 0.97, Estim Creat Clear Calc 25.17, Est GFR (MDRD) Af Amer 70, Est GFR (MDRD) Non-Af 58 L, BUN/Creatinine Ratio 21.7 H, Glucose 97, Calcium 8.6, Total Bilirubin 2.40 H, AST 91 H, ALT 43, Alkaline Phosphatase 355 H, Total Protein 6.3 L, Albumin 1.9 L, Globulin 4.4 H, Albumin/Globulin Ratio 0.4 L, Lipase 24 10/04/23 06:45: Urine Color Yellow, Urine Clarity Clear, Urine pH 5.0, Ur Specific [place] 1.020, Urine Protein 30 H, Urine Glucose (UA) Normal, Urine Ketones 5 H, Urine Occult Blood 10 H, Urine Nitrite Positive H, Urine Bilirubin 3 H, Urine Urobilinogen 8 H, Ur Leukocyte Esterase 25 H, Urine RBC 0 SEEN, Urine WBC 0-5 SEEN, Ur Squamous Epith Cells 0 SEEN, Urine Bacteria RARE, Urine Mucus 0 SEEN Microbiology 10/04/23 05:47 Mucosa - Nasopharyngeal SARS-CoV-2, Influenza & RSV (PCR) - Final Diagnostic Data Abdomen/Pelvis CT 10/04/23 05:20 IMPRESSION: 1. Annular constricting mass measuring 4.8 x 4 x 4.3 cm involving the distal transverse colon consistent with a colon cancer. 2. Innumerable metastases throughout the liver some of which are very bulky. 3. Mild ascites. 4. Retrocrural and retroperitoneal adenopathy. 5. Diffuse soft tissue edema suggesting anasarca. 6. Moderate right and slight left pleural effusion. 7. Atelectasis in the lung bases bilaterally. 8. Cholelithiasis. 9. Numerous diverticula without diverticulitis. Electronically Signed: Mario Alberto Petersen MD at 6:45 EST ,
[2023-10-04 21:47] VITALS: BP 165/67; PULSE 76; RESP 18; TEMP 37.2; O2SAT 95
[2023-10-05 05:10] LABS: Absolute Lymphocyte Count 1.79 X10^3/uL (0.83-4.51); Absolute Neutrophil Count 9.2 X10^3/uL (2.0-7.7); Basophil# 0.03 X10^3/uL; Basophil% 0.3 % (0-1); Eosinophil# 0.01 X10^3/uL; Eosinophils% 0.1 % (0-5); Hematocrit 30.5 % (37-47); Hemoglobin 9.5 g/dL (12.0-15.0); Lymphocyte # 1.79 X10^3/ul (0.83-4.51); Lymphocyte % 15.1 % (19-41); Mean Corp Hgb Conc 31.1 g/dL (32-36); Mean Corpuscular Hgb 30.8 pg (27.0-32.0); Monocyte# 0.72 X10^3/uL; Monocyte% 6.1 % (0-10); NRBC Flagged by Analyzer 0 % (0-5); Neutrophil # 9.22 X10^3/uL (2.7-7.7); Neutrophil % 77.4 % (47-70); POSITIVE MORPHOLOGY YES; Platelet Count 180 K/mm3 (150-450); RBC Distribution Width CV 18.5 % (11.6-14.6); RBC Distribution Width SD 66.4 fl (35.1-43.9); Red Blood Count 3.08 M/mm3 (4.2-5.4); White Blood Count 11.9 K/mm3 (4.4-11.0)
[2023-10-05 06:00] VITALS: BP 125/74; PULSE 84; RESP 18; TEMP 36.9; O2SAT 98
[2023-10-05 06:01] LABS: Differential Indicated SCAN CRITERIA MET
[2023-10-05 06:09] LABS: ALB/GLOB Ratio 0.4 RATIO (0.9-2.4); AST(SGOT) 117 U/L (15-37); Alanine Aminotransfer ALT/SGPT 49 U/L (13-56); Albumin, Serum 1.7 g/dL (3.2-5.0); Alkaline Phosphatase 354 U/L (45-117); Anion Gap 5 (5-15); BUN 21 mg/dL (7-18); BUN/Creat Ratio 21.9 RATIO (10-20); Chloride 108 mmol/L (98-107); Creatinine, Serum 0.96 mg/dL (0.55-1.02); EST Glomerular Filtration Rate 59 mL/min (>60); Est Glom Filt Rate - Afr Amer 71 mL/min (>60); Estimated Creatinine Clearance 25.43 ml/min; Globulin 3.9 g/dL (2.2-4.2); Glucose 99 mg/dL (74-106); Potassium 3.6 mmol/L (3.5-5.1); Protein, Total 5.6 g/dL (6.4-8.2); Sodium Level 136 mmol/L (136-145)
[2023-10-05 07:26] LABS: Anisocytosis 1+; Hypochromasia 1+
--- NOTE | 2023-10-05 07:59 | PN.HOSP_ITS ---
Reason for Visit Reason for Visit: Diagnoses Malignant neoplasm of colon, unspecified (10/04/23) Secondary malignant neoplasm of liver and intrahepatic bile duct (10/04/23) Unspecified severe protein-calorie malnutrition (10/04/23) Dehydration (10/04/23) Acute kidney failure, unspecified (10/04/23) Nausea with vomiting, unspecified (10/04/23) Subjective Subjective Patient is an 87-year-old lady with no apparent past medical history presented w ith progressive generalized weakness and intractable nausea and vomiting and inability to tolerate p.o. CT of the abdomen and pelvis obtained on admission demonstrated findings consistent with metastatic colon cancer with a circumferential lesion involving the transverse colon and significant burden of metastatic disease to the liver Objective Data Objective Data Vital Signs: Vital Signs Temp Pulse Resp BP Pulse Ox O2 Del Method 98.4 F 84 18 125/74 H 98 Room Air 10/05/23 06:00 10/05/23 06:00 10/05/23 06:00 10/05/23 06:00 10/05/23 06:00 10/05/23 06:00 Oxygen Delivery Method Room Air Weight: 38.3 kg Body Mass Index (BMI) 16.5 Intake & Output: Intake and Output for Last 24 Hours 10/03/23 10/04/23 10/05/23 23:59 23:59 23:59 Intake Total 900 / 1150 1265.83 / 1265.83 Output Total 800 / 800 Balance 900 / 750 465.83 / 465.83 Medical Nutrition Assessment Dietitian: Malnutrition Criteria Met Start: 10/04/23 12:11 Freq: Status: Active Protocol: Document 10/04/23 12:11 AG (Rec: 10/04/23 12:12 [id number]) Nutrition Malnutrition Evidence of Malnutrition Exists Yes Malnutrition (severe): Acute Illness/Injury Evidenced By Suboptimal Energy Intake ( Severe),Physical Changes ( Severe) Clinical Problem Acute Disease or Injury Related Malnutrition Etiology acute on likely chronic severe malnutrition related to inadequate energy intake w/ increased energy needs d/t suspected cancer Signs/Symptoms as evidenced by estimated PO intake meeting <50% of estimated energy needs x 2 weeks, severe muscle wasting/ fat loss evident per physical exam in orbital, clavicle, acromion, and temporal areas, BMI 16.5 Status Active Problem Recommendation Dietitian Recommendations/Changes continue regular diet, will increase ensure plus high protein 120mL to 4x/day w/ medpass for additional nutrition if consumed Lab / Micro Data 10/05/23 04:35 10/05/23 04:35 Labs: Laboratory Results - last 24 hr 10/05/23 04:35: WBC 11.9 H, RBC 3.08 L, Hgb 9.5 L, Hct 30.5 L, MCV 99.0, MCH 30.8, MCHC 31.1 L, RDW Std Deviation 66.4 H, RDW Coeff of [place] 18.5 H, Plt Count 180, MPV 9.0, Immature Gran % (Auto) 1.000 H, Neut % (Auto) 77.4 H, Lymph % (Auto) 15.1 L, [place] % (Auto) 6.1, Eos % (Auto) 0.1, Baso % (Auto) 0.3, Absolute Neuts (auto) 9.2 H, Absolute Lymphs (auto) 1.79, Nucleated RBC % 0, Hypochromasia 1+, Anisocytosis 1+, Sodium 136, Potassium 3.6, Chloride 108 H, Carbon Dioxide 23.0, Anion Gap 5, BUN 21 H, Creatinine 0.96, Estim Creat Clear Calc 25.43, Est GFR (MDRD) Af Amer 71, Est GFR (MDRD) Non-Af 59 L, BUN/Creatinine Ratio 21.9 H, Glucose 99, Calcium 8.0 L, Total Bilirubin 1.50 H, AST 117 H, ALT 49, Alkaline Phosphatase 354 H, Total Protein 5.6 L, Albumin 1.7 L, Globulin 3.9, Albumin/Globulin Ratio 0.4 L Micro: Microbiology 10/04/23 05:47 Mucosa - Nasopharyngeal SARS-CoV-2, Influenza & RSV (PCR) - Final Physical Exam Narrative General: Alert, very thin HEENT: Atraumatic, normocephalic Eyes: Normal conjunctiva, extraocular movements grossly intact Neck: Supple Respiratory: Clear to auscultation bilaterally, normal respiratory effort Cardiovascular: Regular rate and rhythm GI: Protuberant and somewhat distended Extremities: No edema Musculoskeletal: Moving all extremities Neuro: No overt focal neurological deficits Skin: No rashes appreciated Psych: Cooperative Assessment & Plan Assessment/Plan (1) Metastatic colon cancer to liver: (2) Intractable nausea and vomiting: (3) Dehydration: (4) Acute kidney injury: PLAN: Plan Patient is an 87-year-old lady with no apparent past medical history presented with progressive generalized weakness and intractable nausea and vomiting and inability to tolerate p.o. CT of the abdomen and pelvis obtained on admission demonstrated findings consistent with metastatic colon cancer with a circumferential lesion involving the transverse colon and significant burden of metastatic disease to the liver 1. Intractable nausea and vomiting ? Admitted to regular nursing floor for symptom management 2. Suspected colon CA with metastasis to the liver ? Case discussed with family family not interested in pursuing any biopsy would like to be discharged home with hospice case management subsequently consulted to assist with disposition 3. Moderate right-sided pleural effusion ? Suspect malignant pleural effusion 4. Acute kidney injury ? Resolved with rehydration 5. Severe protein calorie malnutrition ? Evidenced by low BMI of 16.5, weight loss, decreased oral intake consult placed to dietitian 6. DVT prophylaxis ? SC heparin Time spent in the patient's overall evaluation,decision-making process, review of diagnostic data, adjustment of management, discussion with other providers, nursing nursing and ancillary staff involved in patient's care documentation, 37 minutes Charges/Coding Visit Charges Inpatient E&M: 82715 Subs Hosp L2
[2023-10-05 08:38] VITALS: BP 107/72; PULSE 68; RESP 16; TEMP 36.5; O2SAT 98
--- NOTE | 2023-10-05 08:43 | PCA ---
patient records fax to hospice for referral ,
[2023-10-05] MEDS: Heparin Injection (Vial) 5,000 UNIT/ML VIAL 5000 UNIT SC (08:44)
--- NOTE | 2023-10-05 09:47 | CASEMGMT ---
Social Work SW spoke w/physician, he states family wants wants to go home today. SW w/daughters Vanessa and Melvina in the room in regard to the plan, they are agreeable to hospice and gave SW the number [phone] to call to set up a time. SW spoke w/RN, learned referral was already sent and family's number given to set up time to meet. HERMINIO Jeter
--- NOTE | 2023-10-05 11:58 | PCM.DC.SUM ---
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 10/05/23 08:12 Consult: Hospice / Palliative Care Routine Consulting Provider: [facility] Reason for Consult: Metastatic colon cancer EMERGENT Consult: No Notified: Yes Date Notified: 10/05/23 Time Notified: 08:12 Method of Notification: Answering Service Reason For Visit: FATIGUE, INTRACTABLE NAUSEA, INABILITY TO MICHAEL PO, Diagnosis Discharge Diagnosis (1) Metastatic colon cancer to liver: Status: Acute Code(s): C18.9 - Malignant neoplasm of colon, unspecified; C78.7 - Secondary malignant neoplasm of liver and intrahepatic bile duct (2) Intractable nausea and vomiting: Status: Acute Code(s): R11.2 - Nausea with vomiting, unspecified (3) Dehydration: Status: Acute Code(s): E86.0 - Dehydration (4) Acute kidney injury: Status: Acute Code(s): N17.9 - Acute kidney failure, unspecified Plan Patient is an 87-year-old lady with no apparent past medical history presented with progressive generalized weakness and intractable nausea and vomiting and inability to tolerate p.o. CT of the abdomen and pelvis obtained on admission demonstrated findings consistent with metastatic colon cancer with a circumferential lesion involving the transverse colon and significant burden of metastatic disease to the liver 1. Intractable nausea and vomiting ? Admitted to regular nursing floor for symptom management 2. Suspected colon CA with metastasis to the liver ? Case discussed with family family not interested in pursuing any biopsy would like to be discharged home with hospice case management subsequently consulted to assist with disposition 3. Moderate right-sided pleural effusion ? Suspect malignant pleural effusion 4. Acute kidney injury ? Resolved with rehydration 5. Severe protein calorie malnutrition ? Evidenced by low BMI of 16.5, weight loss, decreased oral intake consult placed to dietitian 6. DVT prophylaxis ? SC heparin Time spent in the patient's overall evaluation,decision-making process, review of diagnostic data, adjustment of management, discussion with other providers, nursing nursing and ancillary staff involved in patient's care documentation, 37 minutes Medications at Discharge Home Medications ondansetron 4 mg disintegrating tablet 4 mg PO Q6H PRN nausea and vomiting #30 tabs 10/05/23 oxycodone 5 mg tablet 2.5 mg (1/2 x 5 mg) PO Q4H PRN PRN Pain Score 4-10 5 days #20 tabs 10/05/23 Hospital Course Summary of Care Provided Minutes Spent on Discharge: 35 Physical Exam Narrative General: Alert, very thin HEENT: Atraumatic, normocephalic Eyes: Normal conjunctiva, extraocular movements grossly intact Neck: Supple Respiratory: Clear to auscultation bilaterally, normal respiratory effort Cardiovascular: Regular rate and rhythm GI: Protuberant and somewhat distended Extremities: No edema Musculoskeletal: Moving all extremities Neuro: No overt focal neurological deficits Skin: No rashes appreciated Psych: Cooperative Medical Records Data Medical Nutrition Assessment Dietitian: Malnutrition Criteria Met Start: 10/04/23 12:11 Freq: Status: Active Protocol: Document 10/04/23 12:11 (Rec: 10/04/23 12:12 [id number]) Nutrition Malnutrition Evidence of Malnutrition Exists Yes Malnutrition (severe): Acute Illness/Injury Evidenced By Suboptimal Energy Intake ( Severe),Physical Changes ( Severe) Clinical Problem Acute Disease or Injury Related Malnutrition Etiology acute on likely chronic severe malnutrition related to inadequate energy intake w/ increased energy needs d/t suspected cancer Signs/Symptoms as evidenced by estimated PO intake meeting <50% of estimated energy needs x 2 weeks, severe muscle wasting/ fat loss evident per physical exam in orbital, clavicle, acromion, and temporal areas, BMI 16.5 Status Active Problem Recommendation Dietitian Recommendations/Changes continue regular diet, will increase ensure plus high protein 120mL to 4x/day w/ medpass for additional nutrition if consumed Weight / BMI Weight Weight: 38.3 kg Body Mass Index (BMI) 16.5 ABG / Lab / Microbiology Data 10/05/23 04:35 10/05/23 04:35 Laboratory: Laboratory Results - last 24 hr 10/05/23 04:35: WBC 11.9 H, RBC 3.08 L, Hgb 9.5 L, Hct 30.5 L, MCV 99.0, MCH 30.8, MCHC 31.1 L, RDW Std Deviation 66.4 H, RDW Coeff of [place] 18.5 H, Plt Count 180, MPV 9.0, Immature Gran % (Auto) 1.000 H, Neut % (Auto) 77.4 H, Lymph % (Auto) 15.1 L, [place] % (Auto) 6.1, Eos % (Auto) 0.1, Baso % (Auto) 0.3, Absolute Neuts (auto) 9.2 H, Absolute Lymphs (auto) 1.79, Nucleated RBC % 0, Hypochromasia 1+, Anisocytosis 1+, Sodium 136, Potassium 3.6, Chloride 108 H, Carbon Dioxide 23.0, Anion Gap 5, BUN 21 H, Creatinine 0.96, Estim Creat Clear Calc 25.43, Est GFR (MDRD) Af Amer 71, Est GFR (MDRD) Non-Af 59 L, BUN/Creatinine Ratio 21.9 H, Glucose 99, Calcium 8.0 L, Total Bilirubin 1.50 H, AST 117 H, ALT 49, Alkaline Phosphatase 354 H, Total Protein 5.6 L, Albumin 1.7 L, Globulin 3.9, Albumin/Globulin Ratio 0.4 L Microbiology: Microbiology 10/04/23 05:47 Mucosa - Nasopharyngeal SARS-CoV-2, Influenza & RSV (PCR) - Final D/C Instructions Discharge Diet: No restrictions Discharge Activity: Return to Normal Activity Call your doctor if you observe: Fever of 101 or Higher, Shortness of breath, Fainting spells and Chest pain Meaningful Use Info Meaningful Use Diagnoses (Choose all that apply): None applicable Discharge Plan Admission Admit Date/Time: 10/04/23 08:32 Attending Provider: Lencho Verde Primary Care Provider: PARVEEN FIELDS Consulting Providers: Zion Tobin; Tia Turk; Lencho Thomas; Suzy Cardenas; Gladys Baker; Kelsea Jamil SPECIAL ASSETS OFFICER Discharge Orders/Prescriptions Prescriptions: New oxycodone 5 mg Tablet 2.5 mg PO Q4H PRN PRN (Reason: Pain Score 4-10) 5 Days Qty: 20 0RF ondansetron 4 mg tablet,disintegrating 4 mg PO Q6H PRN (Reason: nausea and vomiting) Qty: 30 0RF Referrals / Follow Up: PARVEEN FIELDS CRNP [Primary Care Provider] - Disposition Disposition (needs filled in before D/C Order can be placed): Hospice in Home Charges/Coding Visit Charges Inpatient E&M: 27645 Disch Hosp >30min
--- NOTE | 2023-10-05 14:44 | CHAPLAIN ---
Type of Pastoral Visit _x__ Initial Visit ___ Follow-up Visit ___ On-call Visit ___ General Patient Visit ___ Spiritual Assessment ___ Family Conference ___ Bereavement ___ Rapid Response ___ Code Blue ___ Other (describe below) Pastoral Care Referral From ___ Patient _x__ Family ___ Nurse ___ Physician ___ Dimensional Inspector ___ Motel Maid ___ Other (describe below) Sacrament/Intervention ___ Active listening ___ Anointing ___ Buddhist ___ Bereavement ___ Communion ___ Symone exploration ___ ___ Life review _x__ Prayer ___ Reconciliation ___ Sacrament of Sick _x__ Supportive presence ___ Wedding ___ Other (describe below) Pastoral Comments patient is all wrapped up in blankets and resting quietly; offer of support; two daughters are in the room with pt; pt is able to answer questions but talks softly and minimally; no one engages in conversation but all are welcoming; daughter recommends a prayer as the needed action and the same is given
--- NOTE | 2023-10-05 14:55 | CASEMGMT ---
Social Work - Discharge note Discharge order in patient. Received notice from nursing that patient's family has a recycling collections driver to hospital to transport patient home. This food writer met with patient and 2 daughters to check in on discharge plan. Confirmation that hospice meeting went well and hospice nurse plans to be at the house later today to admit, and wanted notified by hospital of discharge time. This food writer offered to arrange a cot transport. Daughters reports hospice offered this but would not be to hospital until later, at the earliest 1630. Family prefers to take patient home sooner, and to feel able to get patient into the min-van waiting for patient at the main entrance. Family reports to have a wheelchair at home, and there are plenty of people at home to help patient into the house if needed. Family expressed appreciation of offer to arrange a ride, but politely adamant of plan to transport via hired recycling collections driver. Secure email to admissions steam tender, Ratna Esqueda ([email or web address]) regarding discharge time. Faxed discharge summary and packet to confirmed admissions fax at Hospice ( ), including discharge time in the fax. Plan: Home with family assist and hospice to admit. -TIFFANIE Montanez
== END 2023-10-05 14:48 | disposition hospice, home (50) | DRG 435 ==
LOC: ED 07:58 → MS3 08:40
PROVIDERS: Admitting Provider Internal Medicine; Emergency Provider Emergency Medicine; PCP Nurse Practitioner Adult Health; Visit Provider Internal Medicine
DX: C78.7 Secondary malignant neoplasm of liver and intrahepatic bile duct (principal); E43 Unspecified severe protein-calorie malnutrition; N17.9 Acute kidney failure, unspecified; C18.9 Malignant neoplasm of colon, unspecified; J91.0 Malignant pleural effusion; Z68.1 Body mass index [BMI] 19.9 or less, adult; E86.0 Dehydration; D63.0 Anemia in neoplastic disease; R11.2 Nausea with vomiting, unspecified; R53.81 Other malaise
CPT/HCPCS: 36415; 74177; 80053; 81001; 83690; 85025; 87086; 87631; 97802; 99285; J7030; P9612; Q9967; A4216; J2405